=== PATIENT | male | born 1945 | race Caucasian/White ===

== ENCOUNTER 2018-09-03 07:10 | Day surgery (SDC) | payer OTHER ==
--- NOTE | 2018-09-02 16:02 | RAD REPORT ---
EXAM DESCRIPTION: RAD - Chest Pa And Lat (2 Views) - 09/02/2018 3:41 pm CLINICAL HISTORY: Preop chest, pending soft tissue lesion removal COMPARISON: December 2016 TECHNIQUE: PA and lateral views of the chest were obtained. FINDINGS: The lungs are clear of infiltrate, mass or failure finding. Lung markings are similar to c omparison. Hilar regions are stable from comparison as well. The focal density seen superimposed on the upper thoracic spine lateral view in 2017 is diminished in prominence. This represents spurring o f the spine. Heart size is normal and central vasculature is within normal limits. No pleural effusi on or pneumothorax seen. No acute bony finding noted. No aortic abnormality. IMPRESSION: No acute cardiopulmonary process.
[2018-09-02 16:07] LABS: Potassium 3.7 mmol/L (3.5-5.1)
[2018-09-02 16:16] LABS: Absolute Lymphocytes (CBC) 1.7 K/uL (0.7-4.9); Absolute Monocytes 0.5 K/uL (0.1-1.3); Absolute Neutrophil 1.7 K/uL (1.8-8.0); Basophils % 0.7 % (0-1.3); Hematocrit 43.7 % (39.6-49.0); Lymphocytes % 41.5 % (15.3-44.8); MPV 8.7 fL (7.6-11.3); Monocytes % 11.7 % (3.3-12.3); RBC Red Blood Cell Count 4.61 M/uL (4.33-5.43)
--- NOTE | 2018-09-03 06:17 | EKG ---
Test Date: 2018-09-02 Test Time: 15:32:05 [facility]: BECKI MEASUREMENT RESULTS: Intervals: Rate: 47 NH: 214 QRSD: 104 QT: 458 QTc: 405 [place]: P: 34 NH: 214 QRS: -23 T: 46 INTERPRETIVE STATEMENTS: Marked sinus bradycardia with 1st degree AV block Abnormal ECG Compared to ECG 01/07/2017 12:17:57 First degree AV block now present Left-axis deviation no longer present Electronically Signed On 09-03-18 06:17:01 CDT by Sushant Nolen
[2018-09-03] MEDS ORDERED: Ringers Lactate 1,000 ML IV ONE ×2 (07:44→10:43)
[2018-09-03] MEDS ORDERED: MIDAZOLAM HCL 2 MG/2 ML INJ ONE (08:13)
[2018-09-03] MEDS ORDERED: PROPOFOL 200 MG/20 ML VIAL IV ONE (08:13)
[2018-09-03] MEDS ORDERED: FENTANYL CITR 100 MCG/2 ML ONE ×2 (08:13→10:30)
[2018-09-03] MEDS ORDERED: LIDOCAINE 2% MPF 5 ML VIAL ONE (08:13)
[2018-09-03] MEDS ORDERED: CIPROFLOXACIN 400mg IV 400 MG/200 ML BAG IV ONE (08:17)
[2018-09-03] MEDS ORDERED: GLYCOPYRROLATE 0.2 MG/ML SYR ONE (09:17)
[2018-09-03] MEDS ORDERED: EPHEDRINE SULF 50 MG/ML VIAL ONE (09:54)
[2018-09-03] MEDS ORDERED: KETOROLAC 30 MG/ML INJ ONE (11:29)
--- NOTE | 2018-09-03 11:52 | P.BOP ---
Preoperative diagnosis: left temporal and left facial/maxillary ulcerated masses. Postoperative diagnosis: Basal cell carcioma left temporal , ulcerated maxillary mass cant r/o sq ce Primary procedure: 1. Wide excision of Basal cell carcioma left temporal 6x3cm Secondary procedure: 2. Wide excision of ulcerated maxillary mass 2x2cm Findings: after submitting extra margins, they were free of tumor by DR Mathew. Anesthesia: General Complications: None Transferred to: Recovery Room Condition: Good
--- NOTE | 2018-09-09 07:55 | OP ---
Date of Procedure: 09/03/2018 Surgeon: Rober Lobato MD Preoperative Diagnoses: Left temporal and left facial ulcerative masses. 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 2.Ulcerated maxillary/facial mass, cannot rule out squamous cell carcinoma in situ. Procedures: 1.wide resection of basal carcinoma of left temporal region with frozen section 6 x 3 cm. 2.Wide excision of ulcerated axillary facial mass 2 x 2 cm. Findings: Margins free of tumor by Dr. Mathew. Extra margins were submitted to Dr. Mathew during frozen sec tion. Anesthesia: General plus local. Indications: This is the case of a male who comes to us with 2 lesions, one temporal and one facial with ulcerations with benefits, alternatives, and risks including but not limit ed to infection, bleeding, damage to adjacent structures, anesthesia complication, recurrence, NE, an d even . He also understands this might not relieve any symptoms and he might need more than on e surgical intervention. The area of concern was marked by me and the patient in the holding room. Description Of Procedure: The patient was brought to the operating room, placed in supine position. Anesthesia was done without complication. A time-out was called. Left temporal and left maxillary area were prepped and draped in usual sterile fashion. The procedures were kept apart with instrumen ts apart to avoid cross contamination. We started with the temporal region. A wide excision was mad e away from the area of the 1.5 cm. It is in the area of the temporal region but we were able to remove enough, sent out as a specimen, and then Dr. Mathew told me that some of the margins were positive, so we circumferential excision once again all the way down to a muscle. Underst anding that it is going to be a difficult closure and in this case he may need a skin graft, we want to make sure the margins are negative. Margins came back as negative, although he has basal cell car cinoma. So, we proceeded to close this in layers. Obviously, there is a gap. It is a big gap area. We are trying to bring it together. The patient asked . If we see that next few days th ere is too much tension over the area, we may have to remove the stitches and just put a skin graft. Obviously, cosmetically, it may have some compromise. So, we proceeded to close that after obtainin g hemostasis. The patient tolerated the procedure well. We had also the lesion on the facial region . We proceeded to do a wide excision of that area, sent for orientation. Pathology comes back as ma y be carcinoma in situ; Dr. Mathew is not completely sure. The margins are free of tumor, so he is going to wait for permanent section. That area was once again approximated. The patient tolerated proced ure well. Both areas were covered with sterile dressings. The patient was sent to recovery in [facility] condition. Disposition: Home. Keep the area dry for 48 hours, then may shower. Avoid direct sunlight. Medications: See orders. KANG/LUCA Voice ID: [id number] Report ID: [id number]
== END 2018-09-03 12:37 | disposition home or self-care (01) ==
LOC: OR 07:10
PROVIDERS: ATTEND Surgery
PROC: 0JB10ZX Excision of Face Subcutaneous Tissue and Fascia, Open Approach, Diagnostic (ICD-10-PCS; 2018-09-03)
PROC: 0JB10ZZ Excision of Face Subcutaneous Tissue and Fascia, Open Approach (ICD-10-PCS; principal; 2018-09-03 10:15)
DX: C44.319 Basal cell carcinoma of skin of other parts of face (principal); C76.0 Malignant neoplasm of head, face and neck; I10 Essential (primary) hypertension; Z79.899 Other long term (current) drug therapy
CPT/HCPCS: 11646; 12054; 11644; 93005; 85025; 80048; 36415; 88331; 88332; 88305; 71046; J2704; J2250; J3010 ×2; J0744

== ENCOUNTER 2020-06-22 08:59 | Emergency (ER) | payer OTHER ==
--- NOTE | 2020-06-22 09:35 | ER ---
Nurse's Notes [facility] Name: Monica Nova Age: 75 yrs Sex: Male : 1945 Arrival Date: 06/22/2020 Time: 09:01 Bed 4 Private MD: Diagnosis: ST elevation (STEMI) myocardial infarction of other sites;Angina pectoris;Hypokalemia;Hypomagnesemia Presentation: 06/22 09:18 Chief complaint: Patient states: chest pain that radiates to L arm that began 2 hours ss ago. Coronavirus screen: Client denies travel out of the [place] in the last 14 days. Ebola Screen: Patient denies exposure to infectious person. Patient denies travel to an Ebola-affected area in the 21 days before illness onset. Initial Sepsis Screen: Does the patient meet any 2 criteria? No. Patient's initial sepsis screen is negative. Does the patient have a suspected source of infection? No. Patient's initial sepsis screen is negative. Risk Assessment: Do you want to hurt yourself or someone else? Patient reports no desire to harm self or others. Onset of symptoms was June 22, 2020. 09:18 Method Of Arrival: Ambulatory ss 09:18 Acuity: SIENNA 2 ss Triage Assessment: 09:18 General: Appears in no apparent distress. uncomfortable, well groomed, well developed, sv Behavior is calm, cooperative, appropriate for age. Pain: Complains of pain in anterior aspect of left upper chest and left breast Pain radiates to left arm Pain currently is 5 out of 10 on a pain scale. Quality of pain is described as sharp, Pain began 0600 Is continuous, Noted to be grimacing. Neuro: Level of Consciousness is awake, alert, obeys commands, Oriented to person, place, time, situation, Moves all extremities. Full function Speech is normal. Cardiovascular: Patient's skin is warm and dry. Rhythm is atrial fibrillation. Respiratory: Airway is patent Respiratory effort is even, unlabored, Respiratory pattern is regular, symmetrical. Derm: Skin is intact, Skin is normal. Musculoskeletal: Range of motion: intact in all extremities. 09:18 GI: Reports nausea. sv Historical: - Allergies: 09:20 PENICILLINS; ss - PMHx: 09:20 Hypertension; High Cholesterol; ss - Immunization history:: Adult Immunizations up to date. - Social history:: Smoking status: Patient denies any tobacco usage or history of. - Family history:: not pertinent. Screenin:35 Abuse screen: Denies threats or abuse. Denies injuries from another. Nutritional sv screening: No deficits noted. Tuberculosis screening: No symptoms or risk factors identified. Fall Risk None identified. Assessment: 10:03 General: Appears in no apparent distress. uncomfortable, well groomed, well developed, sv Behavior is calm, cooperative, appropriate for age. Pain: Complains of pain in anterior aspect of right upper chest and right breast Pain radiates to left arm Pain currently is 5 out of 10 on a pain scale. Pain began 0600. Neuro: Level of Consciousness is awake, alert, obeys commands, Oriented to person, place, time, situation, Moves all extremities. Full function. Respiratory: Airway is patent Respiratory effort is even, unlabored, Respiratory pattern is regular, symmetrical. Derm: Skin is pink, warm \\T\\ dry. 10:03 GI: Reports nausea. sv 10:11 Reassessment: Report given to Thy RN at [facility]. sv 10:20 Reassessment: Patient appears in no apparent distress at this time. Patient and/or sv family updated on plan of care and expected duration. Pain level reassessed. Patient is alert, oriented x 3, equal unlabored respirations, skin warm/dry/pink. Vital Signs: 09:18 BP 156 / 73; Pulse 70; Resp 19; Pulse Ox 97% on R/A; Weight 95.25 kg; Height 5 ft. 8 ss in. (172.72 cm); Pain 5/10; 09:26 Weight 96.9 kg (M); sv 09:39 BP 117 / 58; Pulse 65; Resp 21; Pulse Ox 100% ; sv 09:45 BP 88 / 64; Pulse 64; Resp 21; Pulse Ox 100% ; sv 10:15 BP 111 / 66; Pulse 60; Resp 16; Pulse Ox 99% on 2 lpm NC; sv 09:26 Body Mass Index 32.48 (96.90 kg, 172.72 cm) sv ED Course: 09:01 Patient arrived in ED. ds1 09:13 Jessica Byrne, RN is Primary Nurse. sv 09:20 Triage completed. ss 09:20 Arm band placed on right wrist. ss 09:20 discharging machine operator on. Pulse ox on. NIBP on. sv 09:20 Inserted saline lock: 20 gauge in left antecubital area, using aseptic technique. Blood sv collected. Flushed left antecubital with 5 ml normal saline. 09:23 Vimal Matias MD is Attending Physician. [facility] 09:29 EKG done, by ED staff, reviewed by Vimal Matias MD. Inserted saline lock: 20 gauge in jb1 right antecubital area, using aseptic technique. 09:30 Oxygen administration via nasal cannula \\T\\ 2L/min. sv 09:34 XRAY Chest (1 view) In Process Unspecified. EDMS 09:35 Patient has correct armband on for positive identification. Placed in gown. Bed in low sv position. Call light in reach. Side rails up X2. 09:[address] matias to [facility], pt accepted in transfer by Dr jacky uQiroz, admin approval given by ASPEN Ryder. 10:23 COVID-19 : Document "Date of Symptom Onset" if Symptomatic. Sent. sv 10:25 No provider procedures requiring assistance completed. Patient transferred, IV remains sv in place. intact. Administered Medications: 09:36 Drug: morphine 2 mg Route: IVP; Site: left antecubital; hb 10:27 Follow up: Response: No adverse reaction; RASS: Alert and Calm (0) sv 09:36 Drug: Zofran (Ondansetron) 4 mg Route: IVP; Site: left antecubital; hb 10:27 Follow up: Response: No adverse reaction sv 09:36 Drug: Pepcid (famotidine) 20 mg Route: IVP; Site: left antecubital; hb 10:26 Follow up: Response: No adverse reaction sv 09:40 Drug: Heparin (DC-Bolus with thrombolytic) - HEParin 60 units/kg {Co-Signature: hb sv (Emily Pascual RN).} Route: IVP; Site: right antecubital; 10:27 Follow up: Response: No adverse reaction sv 09:40 Drug: Heparin (DC Drip) 12 units/kg/hr - (HEParin 63490 units, D5W 500 ml) sv {Co-Signature: hb (Emily Pascual RN).} Route: IV; Rate: calculated rate; Site: right antecubital; 10:28 Follow up: IV Status: Infusion continued upon transfer sv 09:41 Drug: Tenecteplase 50 mg {Co-Signature: dominick (Emily Pascual RN).} Route: IV; Rate: per sv protocol; Site: left antecubital; 09:41 Follow up: Response: No adverse reaction; IV Status: Completed infusion sv 09:53 Drug: NS 0.9% 1000 ml Route: IV; Rate: 1 bolus; Site: left antecubital; sv 10:28 Follow up: Response: No adverse reaction; IV Status: Infusion continued upon transfer sv 09:55 Drug: Zofran (Ondansetron) 4 mg Route: IVP; Site: left antecubital; sv 10:26 Follow up: Response: No adverse reaction sv 10:03 Drug: Aspirin Chewable Tablet 324 mg Route: PO; sv 10:27 Follow up: Response: No adverse reaction sv 10:03 Drug: PlaVIX (clopidogrel) 300 mg Route: PO; sv 10:26 Follow up: Response: No adverse reaction sv 10:26 Drug: NS 0.9% with KCl 20 mEq/L 1000 ml Route: IV; Rate: 125 ml/hr; Site: left sv antecubital; 10:28 Follow up: IV Status: Infusion continued upon transfer sv 10:26 Drug: Magnesium Sulfate 1 grams Route: IVPB; Infused Over: 1 hrs; Site: left sv antecubital; 10:28 Follow up: IV Status: Infusion continued upon transfer sv Outcome: 09:34 ER care complete, transfer ordered by . beth 10:20 Transferred by helicopter to [facility], Transfer form completed. sv X-rays sent w/ patient. Note: Report given to Gilbert HOBBS from [facility] 10:20 Condition: stable 10:20 Instructed on the need for transfer. 10:31 Patient left the ED. sv Signatures: Dispatcher [employer] EDGilbert Baker jb1 Clare Stewart Stephanie, RN RN sv Anderson, Corey, MD MD cha Sanford, Demi ds1 Adrianne Gonzalez RN RN ss Baxter, Heather, RN RN hb Emily tan
--- NOTE | 2020-06-22 09:35 | EDPHYS ---
Physician Documentation [facility] Name: Monica Nova Age: 75 yrs Sex: Male : 1945 Arrival Date: 06/22/2020 Time: 09:01 Bed 4 Private MD: ED Physician Vimal Matias HPI: 06/22 09:29 This 75 yrs old Male presents to ER via Ambulatory with complaints of Chest beth Pain. 09:29 The patient or guardian reports chest pain that is located primarily in the substernal beth area, anterior chest wall. Onset: this morning. The pain radiates to left arm. Associated signs and symptoms: The patient has no apparent associated signs or symptoms. The chest pain is described as a heaviness, causing indigestion. Severity of pain: At its worst the pain was severe in the emergency department the pain has improved moderately. The patient has not experienced similar symptoms in the past. Historical: - Allergies: 09:20 PENICILLINS; ss - PMHx: 09:20 Hypertension; High Cholesterol; ss - Immunization history:: Adult Immunizations up to date. - Social history:: Smoking status: Patient denies any tobacco usage or history of. - Family history:: not pertinent. ROS: 09:29 Constitutional: Negative for fever, chills, and weight loss, Eyes: Negative for injury, beth pain, redness, and discharge, ENT: Negative for injury, pain, and discharge, Neck: Negative for injury, pain, and swelling, Respiratory: Negative for shortness of breath, cough, wheezing, and pleuritic chest pain, Abdomen/GI: Negative for abdominal pain, nausea, vomiting, diarrhea, and constipation, Back: Negative for injury and pain, : Negative for injury, bleeding, discharge, and swelling, MS/Extremity: Negative for injury and deformity, Skin: Negative for injury, rash, and discoloration, Neuro: Negative for headache, weakness, numbness, tingling, and seizure, Psych: Negative for depression, anxiety, suicide ideation, homicidal ideation, and hallucinations, Allergy/Immunology: Negative for hives, rash, and allergies, Endocrine: Negative for neck swelling, polydipsia, polyuria, polyphagia, and marked weight changes, Hematologic/Lymphatic: Negative for swollen nodes, abnormal bleeding, and unusual bruising. 09:29 Cardiovascular: Positive for chest pain, of the chest. Exam: 09:29 Constitutional: This is a well developed, well nourished patient who is awake, alert, beth and in no acute distress. Head/Face: Normocephalic, atraumatic. Eyes: Pupils equal round and reactive to light, extra-ocular motions intact. Lids and lashes normal. Conjunctiva and sclera are non-icteric and not injected. Cornea within normal limits. Periorbital areas with no swelling, redness, or edema. ENT: Nares patent. No nasal discharge, no septal abnormalities noted. Tympanic membranes are normal and external auditory canals are clear. Oropharynx with no redness, swelling, or masses, exudates, or evidence of obstruction, uvula midline. Mucous membranes moist. Neck: Trachea midline, no thyromegaly or masses palpated, and no cervical lymphadenopathy. Supple, full range of motion without nuchal rigidity, or vertebral point tenderness. No Meningismus. Chest/axilla: Normal chest wall appearance and motion. Nontender with no deformity. No lesions are appreciated. Cardiovascular: Regular rate and rhythm with a normal S1 and S2. No gallops, murmurs, or rubs. Normal PMI, no JVD. No pulse deficits. Respiratory: Lungs have equal breath sounds bilaterally, clear to auscultation and percussion. No rales, rhonchi or wheezes noted. No increased work of breathing, no retractions or nasal flaring. Abdomen/GI: Soft, non-tender, with normal bowel sounds. No distension or tympany. No guarding or rebound. No evidence of tenderness throughout. Back: No spinal tenderness. No costovertebral tenderness. Full range of motion. Male : Normal genitalia with no discharge or lesions. Skin: Warm, dry with normal turgor. Normal color with no rashes, no lesions, and no evidence of cellulitis. MS/ Extremity: Pulses equal, no cyanosis. Neurovascular intact. Full, normal range of motion. Neuro: Awake and alert, GCS 15, oriented to person, place, time, and situation. Cranial nerves II-XII grossly intact. Motor strength 5/5 in all extremities. Sensory grossly intact. Cerebellar exam normal. Normal gait. Psych: Awake, alert, with orientation to person, place and time. Behavior, mood, and affect are within normal limits. Vital Signs: 09:18 BP 156 / 73; Pulse 70; Resp 19; Pulse Ox 97% on R/A; Weight 95.25 kg; Height 5 ft. 8 ss in. (172.72 cm); Pain 5/10; 09:26 Weight 96.9 kg (M); sv 09:39 BP 117 / 58; Pulse 65; Resp 21; Pulse Ox 100% ; sv 09:45 BP 88 / 64; Pulse 64; Resp 21; Pulse Ox 100% ; sv 10:15 BP 111 / 66; Pulse 60; Resp 16; Pulse Ox 99% on 2 lpm NC; sv 09:26 Body Mass Index 32.48 (96.90 kg, 172.72 cm) sv MDM: 09:23 Patient medically screened. beth 09:34 Differential diagnosis: abnormal EKG, acute myocardial infarction, hiatal hernia, beth pancreatitis, pulmonary embolus, stable angina. HEART Score: History: Highly Suspicious (2), ECG: Significant ST-deviation (2), Age: > or = 65 years (2), Risk Factors: > or = 3 Risk factors for atherosclerotic disease (2), Troponin: < or = 1 x Normal Limit (0). The patient was given aspirin in the Emergency Department. The patient's deep vein thrombosis risk score was calculated as follows: Total Score: 0. This patient was found to be at low risk for a deep vein thrombosis by using the Well's assessment criteria. The patient's pulmonary embolism risk score was calculated as follows: Total Score: 0-2 points. This patient was found to be at low risk for a pulmonary embolism by using the Well's assessment criteria. SARAH Risk Score: 1 - patient's age is greater or equal to 65 years, 1 - Three or more CAD risk factors, 1- Known CAD, 1 - ASA use in past 7 days, 1 - Recent [<24hrs] Severe Angina, 1 - ST deviation >0.5mm, TOTAL SCORE = 6. Data reviewed: vital signs, nurses notes, lab test result(s), EKG, radiologic studies, plain films. Data interpreted: panel monitor: rate is 70 beats/min, rhythm is regular, Pulse oximetry: on room air is 97 %. Test interpretation: by ED physician or midlevel provider: ECG, plain radiologic studies. Counseling: I had a detailed discussion with the patient and/or guardian regarding: the historical points, exam findings, and any diagnostic results supporting the discharge/admit diagnosis, lab results, radiology results, the need to transfer to another facility, for higher level of care, [facility] does not immediately have the required specialist, labeling strategist not functional here. 06/22 09:21 Order name: Basic Metabolic Panel; Complete Time: 10:01 ss 06/22 09:21 Order name: CBC with Diff; Complete Time: 10: 06/22 09:21 Order name: LFT's; Complete Time: 10: 06/22 09:21 Order name: Magnesium; Complete Time: 10: ss 06/22 09:21 Order name: NT PRO-BNP; Complete Time: 10: 06/22 09:21 Order name: PT-INR 06/22 09:21 Order name: Troponin (emerg Dept Use Only); Complete Time: 10: 06/22 09:21 Order name: XRAY Chest (1 view) 06/22 10:20 Order name: COVID-19 : Document "Date of Symptom Onset" if Symptomatic. bd 06/22 09:21 Order name: EKG; Complete Time: 09:22 ss 06/22 09:21 Order name: Cardiac monitoring; Complete Time: 09:25 ss 06/22 09:21 Order name: EKG - Nurse/Tech; Complete Time: 09:25 ss 06/22 09:21 Order name: IV Saline Lock; Complete Time: 09:25 ss 06/22 09:21 Order name: Labs collected and sent; Complete Time: 09:25 ss 06/22 09:21 Order name: O2 Per Protocol; Complete Time: 09:25 ss 06/22 09:21 Order name: O2 Sat Monitoring; Complete Time: 09:25 ss 06/22 09:29 Order name: NPO; Complete Time: 09:46 beth 06/22 09:50 Order name: IV Saline Lock - Large Bore; Complete Time: 10:04 beth Administered Medications: 09:36 Drug: morphine 2 mg Route: IVP; Site: left antecubital; hb 10:27 Follow up: Response: No adverse reaction; RASS: Alert and Calm (0) sv 09:36 Drug: Zofran (Ondansetron) 4 mg Route: IVP; Site: left antecubital; hb 10:27 Follow up: Response: No adverse reaction sv 09:36 Drug: Pepcid (famotidine) 20 mg Route: IVP; Site: left antecubital; hb 10:26 Follow up: Response: No adverse reaction sv 09:40 Drug: Heparin (MN-Bolus with thrombolytic) - HEParin 60 units/kg {Co-Signature: hb sv (Emily Pascual RN).} Route: IVP; Site: right antecubital; 10:27 Follow up: Response: No adverse reaction sv 09:40 Drug: Heparin (MN Drip) 12 units/kg/hr - (HEParin 58281 units, D5W 500 ml) sv {Co-Signature: hb (Emily Pascual RN).} Route: IV; Rate: calculated rate; Site: right antecubital; 10:28 Follow up: IV Status: Infusion continued upon transfer sv 09:41 Drug: Tenecteplase 50 mg {Co-Signature: hb (Emily Pascual RN).} Route: IV; Rate: per sv protocol; Site: left antecubital; 09:41 Follow up: Response: No adverse reaction; IV Status: Completed infusion sv 09:53 Drug: NS 0.9% 1000 ml Route: IV; Rate: 1 bolus; Site: left antecubital; sv 10:28 Follow up: Response: No adverse reaction; IV Status: Infusion continued upon transfer sv 09:55 Drug: Zofran (Ondansetron) 4 mg Route: IVP; Site: left antecubital; sv 10:26 Follow up: Response: No adverse reaction sv 10:03 Drug: Aspirin Chewable Tablet 324 mg Route: PO; sv 10:27 Follow up: Response: No adverse reaction sv 10:03 Drug: PlaVIX (clopidogrel) 300 mg Route: PO; sv 10:26 Follow up: Response: No adverse reaction sv 10:26 Drug: NS 0.9% with KCl 20 mEq/L 1000 ml Route: IV; Rate: 125 ml/hr; Site: left sv antecubital; 10:28 Follow up: IV Status: Infusion continued upon transfer sv 10:26 Drug: Magnesium Sulfate 1 grams Route: IVPB; Infused Over: 1 hrs; Site: left sv antecubital; 10:28 Follow up: IV Status: Infusion continued upon transfer sv Disposition: 06/22/20 09:34 Transfer ordered to [facility]. Diagnosis are ST elevation (STEMI) myocardial infarction of other sites, Angina pectoris, Hypokalemia, Hypomagnesemia. - Reason for transfer: Higher level of care. - Accepting physician is to [facility], labeling strategist. - Condition is Critical. - Problem is new. - Symptoms are unchanged. Signatures: Dispatcher [employer] Jessica Champagne RN RN Vimal Matias MD MD cha Smirch, Shelby, RN RN Emily Pascual RN RN Emily tan Corrections: (The following items were deleted from the chart) 10:03 09:34 06/22/2020 09:34 Transfer ordered to [facility]. [facility] Diagnosis is ST elevation (STEMI) myocardial infarction of other sites; Angina pectoris. Reason for transfer: Higher level of care. Accepting physician is to [facility], labeling strategist. Condition is Critical. Problem is new. Symptoms are unchanged. [facility] 10:31 10:03 06/22/2020 09:34 Transfer ordered to [facility]. sv Diagnosis is ST elevation (STEMI) myocardial infarction of other sites; Angina pectoris; Hypokalemia; Hypomagnesemia. Reason for transfer: Higher level of care. Accepting physician is to [facility], labeling strategist. Condition is Critical. Problem is new. Symptoms are unchanged. beth
[2020-06-22 09:43] LABS: Basophils % 1.2 % (0-1.3); Hematocrit 45.2 % (39.6-49.0); Lymphocytes % 45.8 % (15.3-44.8); MPV 8.9 fL (7.6-11.3); RBC Red Blood Cell Count 4.68 M/uL (4.33-5.43)
[2020-06-22] MEDS ORDERED: TENECTEPLASE 50 MG/10 ML VIAL IV ONE (09:44)
[2020-06-22] MEDS ORDERED: MORPHINE 2 MG/ML SYR ONE (09:49)
[2020-06-22] MEDS ORDERED: ASPIRIN 81 MG CHEWABLE TABLET ONE (09:49)
[2020-06-22] MEDS ORDERED: ONDANSETRON 4 MG/2 ML VIAL ONE ×2 (09:49→10:04)
[2020-06-22] MEDS ORDERED: HEPARIN 5000 UNIT/ML 1 ML VIAL ONE (09:49)
[2020-06-22] MEDS ORDERED: CLOPIDOGREL 75 MG TABLET ONE (09:50)
[2020-06-22] MEDS ORDERED: FAMOTIDINE 20 MG/2 ML VIAL IV ONE (09:50)
[2020-06-22] MEDS ORDERED: HEPARIN/D5W 25,000 UNIT/500 ML BAG IV ONE (09:50)
[2020-06-22 09:51] LABS: Protime INR 0.89
[2020-06-22 10:01] LABS: ALT/SGPT 57 U/L (12-78); AST/SGOT 74 U/L (15-37); Albumin 3.9 g/dL (3.4-5.0); Alkaline Phosphatase 93 U/L (45-117); BUN Blood Urea Nitrogen 10 mg/dL (7-18); Bicarbonate 27 mmol/L (21-32); Bilirubin Direct 0.3 mg/dL (0-0.2); Glucose Level 100 mg/dL (74-106); Magnesium 1.6 mg/dL (1.8-2.4); NT PRO-BNP 1058 pg/mL (<125); Potassium 3.3 mmol/L (3.5-5.1); Protein, Total 7.5 g/dL (6.4-8.2); Sodium Level 144 mmol/L (136-145); Troponin (Emerg Dept Use Only) 0.02 ng/mL (0.0-0.045)
--- NOTE | 2020-06-22 10:03 | RAD REPORT ---
EXAM DESCRIPTION: RAD - Chest Single View - 06/22/2020 9:34 am CLINICAL HISTORY: CHEST PAIN Chest pain. COMPARISON: Chest Pa And Lat (2 Views) dated 09/02/2018; Chest Pa And Lat (2 Views) dated 01/07/2017; CHEST PA AND LAT 2 VIEW dated 02/17/2008 FINDINGS: Portable technique limits examination quality. Minimal interstitial pulmonary edema suspected. The heart is upper limit normal size. No displaced fr actures. IMPRESSION: Mild CHF.
[2020-06-22] MEDS ORDERED: NA CHLORIDE 0.9% 2,000 ML ONE (10:07)
[2020-06-22] MEDS ORDERED: MAGNESIUM SULFATE 1 gm IVPB 1 GM/100 ML BAG IV ONE (10:32)
[2020-06-22] MEDS ORDERED: NS KCL 20MEQ 1,000 ML IV ONE (10:32)
[2020-06-22 10:39] VITALS: O2SAT 100
[2020-06-22 10:40] VITALS: BP 88/64
--- NOTE | 2020-06-23 06:54 | EKG ---
Test Date: 2020-06-22 Test Time: 09:18:13 [employer]irler: ILENE MEASUREMENT RESULTS: Intervals: Rate: 62 IN: QRSD: 102 QT: 442 QTc: 448 [place]: P: IN: QRS: -29 T: 53 INTERPRETIVE STATEMENTS: Atrial fibrillation Abnormal ECG Compared to ECG 09/02/2018 15:32:05 ST (T wave) deviation now present sinus bradycardia no longer present First degree AV block no longer present Electronically Signed On 06-23-20 06:52:49 CDT by Nilesh Soliz
== END 2020-06-22 10:31 | disposition short-term general hospital (02) ==
LOC: ER 08:59
DX: I21.29 ST elevation (STEMI) myocardial infarction involving other sites (principal); I20.9 Angina pectoris, unspecified; E87.6 Hypokalemia; E83.42 Hypomagnesemia; I10 Essential (primary) hypertension; E78.00 Pure hypercholesterolemia, unspecified; Z20.822 Contact with and (suspected) exposure to COVID-19; Z88.0 Allergy status to penicillin
CPT/HCPCS: 85025; 80048; 36415; 83735; 85610; 80076; 84484; 83880; 71045; U0003; J1644 ×2; J3101; J3475; J2270; J7030; J2405 ×2; J3480; 92977; 93005; 99285

== ENCOUNTER 2020-07-07 09:34 | Emergency (ER) | payer OTHER ==
--- OUTSIDE RECORDS SUMMARY | 2020-07-07 09:38 | XMS REPORT | Continuity of Care Document ---
:1945 Author Organization [facility] t Address [address] [place] [address] Care Team Providers Name Role Phone Xiang Connolly Primary Care Physician Unavailable Manuel HOBBS, A Attending Clinician Unavailable Everett PATEL Attending Clinician Anatoly Rhoades MD Attending Clinician EVERETT Attending Clinician Unavailable EVERETT Admitting Clinician Unavailable Payers Payer Name Policy Type Policy Effective Date Expiration Date Sour ce Number AETNA - MEDICARE [id number] [address] [facility] [address] [facility] MGD CAREAETNA 00:00:00 - Medical MEDICARE HMO Center [id number], [place] [address]Gkfs Contracted Problems Condition Condition Condition Status Onset Resolution Last Treating Co mments Source Name Details Category Date Date Treatment Clinician Date STEMI (ST STEMI (ST 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[facility] St elevation elevation 3 Lu s - myocardial myocardial 00:00: Me dical infarction infarction 00 Ce nter ) ) Allergies, Adverse Reactions, Alerts Allergy Allergy Status Severity Reaction(s) Onset Inactive Treating Comm ents Source Name Type Date Date Clinician Penicill Propensi Active Other (See Made [facility] Comments) 03-25 [facility] - adverse 00:00: pass out Medical reaction 00 Center s Social History Social Habit Start Date Stop Date Quantity Comments Source History of tobacco Current sm[facility] Sex Assigned At [facility] Exposure to Not sure [facility] - SARS-CoV-2 (event) Medica l Reyno Tobacco use and 2020-06-27 2020-06-[address] [facility] - exposure 00:00:00 00:00:00 Medical Center Alcohol intake 2020-06-27 2020-06-27 Current drinker [facility] - 00:[facility]:00 00:00:00 of alcohol Medical Center (finding) History [facility] 2020-06-22 2020-06-[address] [facility] - Alcohol Frequency 00:00:00 00:00:00 Medical Center History SDOH 2020-06-22 2020-06-[address] [facility] - Alcohol Std Drinks 00:00:00 00:00:00 [facility] History [facility] 2020-06-22 2020-06-[address] [facility] - Alcohol Binge 00:00:00 00:00:[address] Alcohol Comment 2020-06-22 2020-06-22 1.5L/week [facility] - 00:[facility]:00 00:00:00 Medical Center Smoking Status Start Date Stop Date Source Former smoker 2020-06-27 00:00:00 2020-06-27 00:00:[address] [facility] Medications Ordered Filled Start Stop Current Ordering Indication Dosage Frequency Signature Comments Components Source Medication Medication Date Date Medication? Clinician (SIG) Name Name lisinopriL 2021- Yes 10mg QD Take [address] (PRINIVIL,Z 06-25-03 tablet (10 L ukes - ESTRIL) 10 00:00: 23:59 mg total) M edical MG tablet 00 :00 by mouth Center daily. clopidogreL 2021- Yes 75mg QD Take [address] (PLAVIX) 75 - 04-03 tablet (75 L ukes - mg tablet 00:00: 23:59 mg total) Me dical 00 :00 by mouth Center daily. aspirin 81 2021- Yes 81mg QD Take [address] MG chewable 06-25 04-03 tablet (81 L ukes - tablet 00:00: 23:59 mg total) Medic al 00 :00 by mouth Center daily. rosuvastati 2020- No 10mg QD Take [address] n (CRESTOR) 06-24 by mouth Glo es - 10 MG 13:21: 00:00 daily. Medical tablet 47 :00 Center metoprolol 2020- No 200mg QD Take [address] succinate 06-2402 mg by [facility] - (TOPROL-XL) 13:21: 00:00 mouth Medi jt 200 MG 24 47 :00 daily. Center hr tablet amLODIPine- 2020- No 1{capsu QD Take [address] benazepriL 06-24 le} capsule by Kely kes - (LOTREL) 13:21: 00:00 mouth Medical 10-20 mg 47 :00 daily. Center per capsule rosuvastati 2021- Yes 10mg QD Take 0.[address] n (CRESTOR) 06-24 tablets Luke s - 20 MG 00:00: 23:59 (10 mg Medical tablet 00 :00 total) by Center mouth daily. apixaban 2021- Yes 5mg Q.5D Take [address] (ELIQUIS) 5 06-24 tablet (5 Kely kes - mg Tab 00:00: 23:59 mg total) Medic al tablet 00 :00 by mouth 2 Center (two) times daily. metoprolol 2021- Yes 25mg Q.5D Take [address] tartrate 06-24 tablet (25 Luke s - (LOPRESSOR) 00:00: 23:59 mg total) Medical 25 MG 00 :00 by mouth 2 Center tablet (two) times daily. Vital Signs Vital Name Observation Time Observation Value Comments Source Systolic blood 2020-06-24 11:00:00 114 mm[Hg] [facility] Diastolic blood 2020-06-24 11:00:00 74 mm[Hg] [facility] S t [facility] Heart rate 2020-06-24 11:00:00 89 /min [facility] Body temperature 2020-06-24 11:00:00 37.67 Lucy [facility] Respiratory rate 2020-06-24 11:00:00 19 /min [facility] Body weight 2020-06-24 11:00:00 92.987 kg [facility] BMI 2020-06-24 11:00:00 31.17 kg/m2 [facility] Oxygen saturation in 2020-06-24 11:00:00 96 /min [facility] - Arterial blood by Medical Ce ntlindsey Pulse oximetry Body height 2020-06-22 11:26:00 172.7 cm [facility] Procedures Procedure Date / Time Performed Performing Clinician Sour e CBC W/PLT COUNT & AUTO 2020-06-24 06:02:[address] [facility] - DIFFERENTIAL [facility] BASIC METABOLIC PANEL 2020-06-24 06:02:[address] [facility] (7) [facility] MAGNESIUM 2020-06-24 06:02:[address] [facility] 2D ECHO W/ DOPPLER 2020-06-23 18:31:31 Gatito Martinez [facility] (CW/PW/COLOR) [facility] APTT 2020-06-23 06:01:00 [facility] ECG 12-LEAD 2020-06-23 05:13:43 [facility] CBC W/PLT COUNT & AUTO 2020-06-23 03:08:[address] [facility] DIFFERENTIAL [facility] BASIC METABOLIC PANEL 2020-06-23 03:08:00 Eugenie Almeida [facility] - (7) [facility] MAGNESIUM 2020-06-23 03:08:[address] [facility] APTT 2020-06-23 00:31:00 [facility] TROPONIN I 2020-06-22 23:07:00 Gatito Martinez [facility] TROPONIN I 2020-06-22 17:29:00 Gatito Martinez [facility] POCT-ACT 2020-06-22 16:29:00 Dony Live [facility] POCT-ACT 2020-06-22 16:16:00 Bayronradha [facility] Sheldonaamir [facility] POCT-ACT 2020-06-22 15:40:00 Bayronradha [facility] L CATH & PCI 2020-06-22 14:48:00 Bayronradha [facility] ECG 12-LEAD 2020-06-22 13:09:47 Unknown, Hl7 Doctor [facility] XR CHEST 1 VIEW 2020-06-22 12:34:00 Gatito Martinez [facility]IDE [facility] CBC W/PLT COUNT & AUTO 2020-06-22 12:07:00 Gatito Martinze [facility] HEMOGLOBIN A1C 2020-06-22 12:07:00 Gatito Martinez [facility] LIPID PANEL 2020-06-22 12:07:00 Juan [facility] BASIC METABOLIC PANEL 2020-06-22 12:07:00 Gatito Martinez [facility] - (7) [facility] HEPATIC FUNCTION PANEL 2020-06-22 12:07:00 Gatito Martinez [facility] MAGNESIUM 2020-06-22 12:07:00 Gatito Martinez [facility] PHOSPHORUS 2020-06-22 12:07:00 Gatito Martinez [facility] TSH/FREE T4 IF INDICATED 2020-06-22 12:07:00 Gatito Martinez [facility] TROPONIN I 2020-06-22 12:07:00 Gatito Martinez [facility] B-TYPE NATRIURETIC 2020-06-22 12:07:00 Gatito Martinez [facility] (BNP) [facility] PROTHROMBIN TIME/INR 2020-06-22 12:07:00 Gtaito Martinez [facility] APTT 2020-06-22 12:07:00 Juan [facility] ECG 12-LEAD 2020-06-22 11:20:42 Unknown, Hl7 Doctor [facility] Theodora erickson [facility] L CATH & PCI 2020-06-22 11:00:00 Dony Live [facility] CARDIAC CATH REPORT - 2020-06-22 00:00:00 Provider, Default [facility] - SCAN Scanning [facility] REPORT OF PROCEDURE - 2020-06-22 00:00:00 Provider, Default [facility] - ENDOSCOPY SCAN Scanning [facility] VASCULAR DIAGRAM -SCAN 2020-06-22 00:00:00 Provider, Default [facility] - [facility] Plan of Care Planned Activity Planned Date Details Comments Source Future Scheduled 2020-11-[address] [facility] - Test 00:00:00 (Season Ended) [code = Medic al Center INFLUENZA VACCINE (Season Ended)] Future Scheduled 2020-03-[address] [facility] - Test 00:00:00 (12+) [code = Medical Center DEPRESSION SCREENING (12+)] Future Scheduled 2020-03-25 Medicare IPPE (WELCOME [facility] - Test 00:00:00 TO MEDICARE) [code = Medical Center Medicare IPPE (WELCOME TO MEDICARE)] Future Scheduled 2011 PNEUMOCOCCAL 65+ [facility]RS [facility] - Test 00:00:00 (1 of 1 - Medical Center [id number]) [code = PNEUMOCOCCAL 65+ YRS (1 of 1 - [id number] PCV13)] Future Scheduled 1996 SHINGLES VACCINES ([address] [facility] - Test 00:00:00 of 2) [code = SHINGLES Medic al Center VACCINES (1 of 2)] Future Scheduled 1965 DTAP/TDAP/TD VACCINES [facility] - Test 00:00:00 (1 - Tdap) [code = Medical C enter DTAP/TDAP/TD VACCINES (1 - Tdap)] Future Scheduled 1964 HEPATITIS C SCREENING [facility] - Test 00:00:00 [code = HEPATITIS C Medical Center SCREENING] Future Scheduled [address] [facility] - Test 00:00:00 [facility] colon (procedure) [code = 932027895] Results Test Description Test Time Test Comments Results Result Sourc e Comments CARDIAC CATH Ordered by an [facility] REPORT - SCAN 5 unspecified [facility]. [facility] Center CARDIAC CATH Ordered by an [facility] REPORT - SCAN 5 unspecified provider. [facility] Center VASCULAR DIAGRAM Ordered by an [facility] S t -SCAN 5 unspecified provider. Glo es - 10:32:30 [facility] Center Transthoracic 2D Ejection FractionSLEH [facility] echo w/ doppler 2 ECHO HEARTLAB [facility] - (cw/pw/color) 09:39:10 [facility] CPACSInterface, Center External Ris In - 06/24/2020 9:39 AM CDTTransthoracic Echocardiography Report (TTE) Demographics Patient Name JASPREET LIAO Date of Study 06/23/2020 BARRY Gender Male Visit Number [id number] Race Room Number 1010 Number Date of 1945 Referring Gatito Martinez Physician Age 75 year(s) [employer]er[employer] [place] Interpreting Luis Eduardo Britton MD Physician BSC Needs to be Pre Read Procedure Type of Study TTE procedure:2DECHO W DOPPLER(CW/PW/COLOR) (GELACIO) Indications:Acute Chest Pain/ Suspected CAD.Clinical HistoryCA, HTN, HLD, EtOH ABUSE, STEMI06/22/20 PCI- RAMUSHGB 12.2HCT 35.1 %Contrast Medium: Definity. Amount - 2 mlHeight: 68 inches Weight: 95.25 kg (210 lbs) BSA: 2.09 m^2 BMI: 31.93 kg/m^2HR: 72 bpm BP: 127/81 mmHg Summary 1. Technically difficult study despite IV contrast. LV endocardium is partially visualized with IV ultrasound enhancing agent. The left ventricle is chamber size (by vol index) is normal (male - LVED vol - 34-74ml/m2). Borderline concentric LV hypertrophy. Mid to distal anterolateral wall appears hypokinetic. Other ingram contract normally. LVEF by Robertson's method of disk assessment is lower limits of normal (50-55%) . LV diastolic function is indeterminate. LA size is moderately enlarged (42-48 ml/m2) . 2. The right ventricular chamber size and systolic function are within normal limits. 3. No significant valvular abnormalities 4. Unable to estimate peak systolic PA pressure; inadequate TR velocity signal. 5. Aortic root size (SInus of Valsalva diameter) is borderline dilated, 4.0 cm. Normal indexed to BSA . Proximal ascending aorta size is mildly dilated, 3.9 cm. Previous Study No prior exam available for comparison. Signature - - Findings Left Ventricle Technically difficult study despite IV contrast. LV endocardium is partially visualized with IV ultrasound enhancing agent. The left ventricle is chamber size (by vol index) is normal (male - LVED vol - 34-74ml/m2). Borderline concentric LV hypertrophy. Mid to distal anterolateral wall appears hypokinetic. Other ingram contract normally. LVEF by Robertson's method of disk assessment is lower limits of normal (50-55%) . LV diastolic function is indeterminate. Left Atrium LA size is moderately enlarged (42-48 ml/m2) . Right Ventricle The right ventricular chamber size and systolic function are within normal limits. Right Atrium RA size is probably normal based on available views. Aortic Valve Mild aortic valve thickening and calcification. No aortic stenosis. Trace aortic regurgitation. Mitral Valve Mild MV leaflet thickening. Mild mitral regurgitation. Tricuspid Valve Normal TV structure and function by available views and Doppler. A trace of tricuspid regurgitation. Unable to estimate peak systolic PA pressure; inadequate TR velocity signal. Pulmonic Valve Normal PV structure and function by limited views and Doppler. Aorta Aortic root size (SInus of Valsalva diameter) is borderline dilated, 4.0 cm. Normal indexed to BSA . Proximal ascending aorta size is mildly dilated, 3.9 cm. Pericardium No pericardial effusion is visualized. IVC/SVC/PA/PV/Pleural The inferior vena cava is not well visualized. Chambers/Structures Left Atrium LA Volume: 92.13 ml LA Area: 24.41 cm^2 LA Vol. Index: 44 ml/m^2 Left Ventricle LVIDd: 4.32 cm LVIDs: 3.12 cm LV Septum Diastolic: 1.09 cm LV PW Diastolic: 1.16 cm LV FS: 27.8 % LVEDV Robertson's:155.16 ml LVESV Robertson's:79.67 ml LVEDVI: 74 ml/m^2 LVEF Robertson's: 50.2 % LVESVI: 38 ml/m^2 LVOT Diameter: 2.22 cm Right Ventricle RVOT VTI: 14.87 cm Aorta Ao Root S of Rand.: 3.97 cm Ascending Aorta: 3.89 cm Doppler/Quantitative Measurements Mitral Valve MV Peak E-Wave: 0.97 m/s MV Peak A-Wave: 0.41 m/s E/A Ratio: 2.36 Peak Gradient: 3.76 mmHg Deceleration Time: 182.9 msec MR Velocity: 4.84 m/s MR VTI: 148.85 cm MV Jefry. Peak: Aortic Valve Peak Velocity: 1.3 m/s Mean Velocity: 0.88 m/s Peak Gradient: 6.76 mmHg Mean Gradient: 3.57 mmHg AV Area (continuity): 3.76 cm^2 AV VTI: 22.89 cm AR P1/2t: 710.8 msec AV DVI: 0.97 LVOT Peak Velocity: 1.07 m/s Peak Gradient: 4.59 mmHg Mean Velocity: 0.78 m/s Mean Gradient: 2.71 mmHg LVOT Diameter: 2.22 cm LVOT VTI: 22.25 cm LVOT Area: 3.87 cm^2 LVOT SV:86.08 ml LVOT CO: 6.2 l/min LVOT CI: 2.97 l/min/m^2 Basic Metabolic Panel 2020-06-24 06:57:00 Test Item Value Reference Range Interpretation Comme nts Sodium (test code = 141 meq/L 086-680 8870-2) Potassium (test code = 3.3 meq/L 3.5-5.1 L 2823-3) Chloride (test code = 103 meq/L 98-107 2074-0) CO2 (test code = 2027-9) 30 meq/L 22-29 H BUN (test code = 3094-0) 7 mg/dL 7-21 Creatinine (test code = 0.69 mg/dL 0.57-1.25 2160-0) Glucose (test code = 104 mg/dL 70-105 2345-7) Calcium (test code = 8.1 mg/dL 8.4-10.2 L 26928-8) EGFR (test code = 82860-3) 112 mL/min/1.73 sq m ESTIMATED GFR IS NOT ACCURATE CREATININE JESÚS MADISON IN PREDICTING GLOMERULAR FILT RATION RATE. ESTIMATED GFR IS NOT APPLICAB LE FOR DIALYSIS PATIEN TS. ABHISHEK (test code = ABHISHEK) Sensor Specialist ID - EDASI Lab Interpretation (test Abnormal code = 94988-4) [facility] 06[facility]57:00 Test Item Value Reference Range Interpretation Comments Magnesium (test code = 1.6 mg/dL 1.6-2.6 91611-6) ABHISHEK (test code = ABHISHEK) Sensor Specialist ID - EDASI Lab Interpretation (test Normal code = 01920-3) [facility]OLIC [id number] 06:57:00 Test Item Value Reference Range Interpretation Comments SODIUM (BEAKER) 141 meq/L 136-145 (test code = 381) POTASSIUM (BEAKER) 3.3 meq/L 3.5-5.1 L (test code = 379) CHLORIDE (BEAKER) 103 meq/L 98-107 (test code = 382) CO2 (BEAKER) (test 30 meq/L 22-29 H code = 355) BLOOD UREA NITROGEN 7 mg/dL 7-21 (BEAKER) (test code = 354) CREATININE (BEAKER) 0.69 mg/dL 0.57-1.25 (test code = 358) GLUCOSE RANDOM 104 mg/dL 70-105 (BEAKER) (test code = 652) CALCIUM (BEAKER) 8.1 mg/dL 8.4-10.2 L (test code = 697) EGFR (BEAKER) (test 112 mL/min/1.73 ESTIM ATED GFR IS code = 1092) sq m NOT ACCURATE CREATININE CLEARANCE IN PREDICTING GLOMERULAR FILTRATION RATE . ESTIMATED GFR I S NOT APPLICABLE FOR DIALYSIS PATIEN TS. Sensor Specialist ID - [id number] 06:57:00 Test Item Value Reference Range Interpretation Comments MAGNESIUM (BEAKER) (test code = 1.6 mg/dL 1.6-2.6 627) Sensor Specialist ID - EDASICBC with platelet count + automated [id number] 06:26:00 Test Item Value Reference Range Interpretation Comments WBC (test code = 6690-2) 4.9 See_Comment [A utomated message] The system [employer] generated this result transmitted ref erence range: 3.5 - 10 .5 K/L. The refe rence range was not u sed to interpret this result as normal/abnor mal. RBC (test code = 789-8) 3.89 See_Comment L [Au tomated message] The system [employer] generated this result transmitted ref erence range: 4.63 - 6 .08 M/L. The refe rence range was not u sed to interpret this result as normal/abnor mal. MCHC (test code = 786-4) 34.6 See_Comment L [A utomated message] The system [employer] generated this result transmitted ref erence range: 32.3 - 3 6.5 GM/DL. The refe rence range was not u sed to interpret this result as normal/abnor mal. Hematocrit (test code = 37.6 % 40.1-51 L 4544-3) MCV (test code = 787-2) 96.7 fL 79-92.2 H MCH (test code = 785-6) 33.4 pg 25.7-32.2 H RDW (test code = 788-0) 12.4 % 11.6-14.4 Platelets (test code = 96 See_Comment L [Aut omated message] 777-3) The system [employer] generated this result transmitted ref erence range: 150 - 45 0 K/CU MM. The referen ce range was not u sed to interpret this result as normal/abnor mal. MPV (test code = 10.0 fL 9.4-12.4 67756-2) nRBC (test code = 413) 0 See_Comment [Aut omated message] The system [employer] generated this result transmitted ref erence range: 0 - 0 /1 00 WBC. The refere nce range was not u sed to interpret this result as normal/abnor mal. % Neutros (test code = 66 % 429) % Lymphs (test code = 24 % 430) % Monos (test code = 9 % 431) % Eos (test code = 432) 0 % % Baso (test code = 437) 0 % # Neutros (test code = 3.23 See_Comment [Aut omated message] 670) The system [employer] generated this result transmitted ref erence range: 1.78 - 5 .38 K/L. The refe rence range was not u sed to interpret this result as normal/abnor mal. # Lymphs (test code = 1.18 See_Comment L [Auto mated message] 414) The system [employer] generated this result transmitted ref erence range: 1.32 - 3 .57 K/L. The refe rence range was not u sed to interpret this result as normal/abnor mal. # Monos (test code = 0.46 See_Comment [Autom ated message] 415) The system [employer] generated this result transmitted ref erence range: 0.30 - 0 .82 K/L. The refe rence range was not u sed to interpret this result as normal/abnor mal. # Eos (test code = 416) 0.01 See_Comment L [Au tomated message] The system [employer] generated this result transmitted ref erence range: 0.04 - 0 .54 K/L. The refe rence range was not u sed to interpret this result as normal/abnor mal. # Baso (test code = 417) 0.01 See_Comment [A utomated message] The system [employer] generated this result transmitted ref erence range: 0.01 - 0 .08 K/L. The refe rence range was not u sed to interpret this result as normal/abnor mal. Immature 0 % 0-1 Granulocytes-Relative (test code = 2801) Lab Interpretation (test Abnormal code = 88305-7) [facility] W/PLT COUNT & AUTO [id number] 06:26:00 Test Item Value Reference Range Interpretation Comments WHITE BLOOD CELL COUNT (BEAKER) 4.9 K/ L 3.5-10.5 (test code = 775) RED BLOOD CELL COUNT (BEAKER) 3.89 M/ L 4.63-6.08 L (test code = 761) HEMOGLOBIN (BEAKER) (test code = 13.0 GM/DL 13.7-17.5 L 410) HEMATOCRIT (BEAKER) (test code = 37.6 % 40.1-51.0 L 411) MEAN CORPUSCULAR VOLUME (BEAKER) 96.7 fL 79.0-92.2 H (test code = 753) MEAN CORPUSCULAR HEMOGLOBIN 33.4 pg 25.7-32.2 H (BEAKER) (test code = 751) MEAN CORPUSCULAR HEMOGLOBIN CONC 34.6 GM/DL 32.3-36.5 (BEAKER) (test code = 752) RED CELL DISTRIBUTION WIDTH 12.4 % 11.6-14.4 (BEAKER) (test code = 412) PLATELET COUNT (BEAKER) (test code 96 K/CU MM 150-450 L = 756) MEAN PLATELET VOLUME (BEAKER) 10.0 fL 9.4-12.4 (test code = 754) NUCLEATED RED BLOOD CELLS (BEAKER) 0 /100 WBC 0-0 (test code = 413) NEUTROPHILS RELATIVE PERCENT 66 % (BEAKER) (test code = 429) LYMPHOCYTES RELATIVE PERCENT 24 % (BEAKER) (test code = 430) MONOCYTES RELATIVE PERCENT 9 % (BEAKER) (test code = 431) EOSINOPHILS RELATIVE PERCENT 0 % (BEAKER) (test code = 432) BASOPHILS RELATIVE PERCENT 0 % (BEAKER) (test code = 437) NEUTROPHILS ABSOLUTE COUNT 3.23 K/ L 1.78-5.38 (BEAKER) (test code = 670) LYMPHOCYTES ABSOLUTE COUNT 1.18 K/ L 1.32-3.57 L (BEAKER) (test code = 414) MONOCYTES ABSOLUTE COUNT (BEAKER) 0.46 K/ L 0.30-0.82 (test code = 415) EOSINOPHILS ABSOLUTE COUNT 0.01 K/ L 0.04-0.54 L (BEAKER) (test code = 416) BASOPHILS ABSOLUTE COUNT (BEAKER) 0.01 K/ L 0.01-0.08 (test code = 417) IMMATURE GRANULOCYTES-RELATIVE 0 % 0-1 PERCENT (BEAKER) (test code = 2801) ECG 12 [id number] 08:26:49Interface, External Ris In - 06/23/2020 8:26 AM CDTVentricular Rate 58 BPMAtrial Rate 64 BPMQRS Duration 100 msQ-T Interval 462 msQTC Calculation(Bazett) 453 msR Lovell -39 degreesT Lovell 123 degreesAtrial fibrillation with slow ventricular responseLeft axis deviationPulmonary disease patternNonspecificST and T wave abnormalityProlonged QTAbnormal ECGWhen compared with ECG of 22-Jun-2020 13:09:47No significant change was foundConfirmed by Ben Godfrey ([id number]) on 06/23/2020 8:26:45 [facility] 2020[facility] 06:34[facility]00 Test Item Value Reference Range Interpretation Comments PTT (test code = 91.0 See_Comment H [Automated message] 36419-7) The system [employer] generated this result transmitted ref erence range: 22.5 - 3 6.0 seconds. The reference range was not used to int erpret this result as normal/abnormal . Lab Interpretation (test Abnormal code = 03896-7) [facility] 06:34:00 Test Item Value Reference Range Interpretation Comments PARTIAL THROMBOPLASTIN TIME 91.0 seconds 22.5-36.0 H (BEAKER) (test code = 760) BASIC METABOLIC [id number] 03:55:00 Test Item Value Reference Range Interpretation Comments SODIUM (BEAKER) 142 meq/L 136-145 (test code = 381) POTASSIUM (BEAKER) 3.7 meq/L 3.5-5.1 (test code = 379) CHLORIDE (BEAKER) 105 meq/L 98-107 (test code = 382) CO2 (BEAKER) (test 27 meq/L 22-29 code = 355) BLOOD UREA NITROGEN 9 mg/dL 7-21 (BEAKER) (test code = 354) CREATININE (BEAKER) 0.73 mg/dL 0.57-1.25 (test code = 358) GLUCOSE RANDOM 91 mg/dL 70-105 (BEAKER) (test code = 652) CALCIUM (BEAKER) 8.0 mg/dL 8.4-10.2 L (test code = 697) EGFR (BEAKER) (test 105 mL/min/1.73 ESTIM ATED GFR IS code = 1092) sq m NOT ACCURATE CREATININE CLEARANCE IN PREDICTING GLOMERULAR FILTRATION RATE . ESTIMATED GFR I S NOT APPLICABLE FOR DIALYSIS PATIEN TS. Sensor Specialist ID - SAM [id number] 03:55:00 Test Item Value Reference Range Interpretation Comments MAGNESIUM (BEAKER) (test code = 1.6 mg/dL 1.6-2.6 627) Sensor Specialist ID - SAM [facility] W/PLT COUNT & AUTO [id number] 03:33:00 Test Item Value Reference Range Interpretation Comments WHITE BLOOD CELL COUNT 4.6 K/ L 3.5-10.5 (BEAKER) (test code = 775) RED BLOOD CELL COUNT 3.71 M/ L 4.63-6.08 L (BEAKER) (test code = 761) HEMOGLOBIN (BEAKER) 12.2 GM/DL 13.7-17.5 L Discorda nt HGB result (test code = 410) compared t o previous result; clinica l correlation req uired. HEMATOCRIT (BEAKER) 35.1 % 40.1-51.0 L (test code = 411) MEAN CORPUSCULAR 94.6 fL 79.0-92.2 H VOLUME (BEAKER) (test code = 753) MEAN CORPUSCULAR 32.9 pg 25.7-32.2 H HEMOGLOBIN (BEAKER) (test code = 751) MEAN CORPUSCULAR 34.8 GM/DL 32.3-36.5 HEMOGLOBIN CONC (BEAKER) (test code = 752) RED CELL DISTRIBUTION 12.7 % 11.6-14.4 WIDTH (BEAKER) (test code = 412) PLATELET COUNT 98 K/CU MM 150-450 L (BEAKER) (test code = 756) MEAN PLATELET VOLUME 9.7 fL 9.4-12.4 (BEAKER) (test code = 754) NUCLEATED RED BLOOD 0 /100 WBC 0-0 CELLS (BEAKER) (test code = 413) NEUTROPHILS RELATIVE 62 % PERCENT (BEAKER) (test code = 429) LYMPHOCYTES RELATIVE 26 % PERCENT (BEAKER) (test code = 430) MONOCYTES RELATIVE 10 % PERCENT (BEAKER) (test code = 431) EOSINOPHILS RELATIVE 1 % PERCENT (BEAKER) (test code = 432) BASOPHILS RELATIVE 1 % PERCENT (BEAKER) (test code = 437) NEUTROPHILS ABSOLUTE 2.86 K/ L 1.78-5.38 COUNT (BEAKER) (test code = 670) LYMPHOCYTES ABSOLUTE 1.21 K/ L 1.32-3.57 L COUNT (BEAKER) (test code = 414) MONOCYTES ABSOLUTE 0.48 K/ L 0.30-0.82 COUNT (BEAKER) (test code = 415) EOSINOPHILS ABSOLUTE 0.03 K/ L 0.04-0.54 L COUNT (BEAKER) (test code = 416) BASOPHILS ABSOLUTE 0.03 K/ L 0.01-0.08 COUNT (BEAKER) (test code = 417) IMMATURE 0 % 0-1 GRANULOCYTES-RELATIVE PERCENT (BEAKER) (test code = 2801) [id number] 01:01:00 Test Item Value Reference Range Interpretation Comments PARTIAL THROMBOPLASTIN TIME 29.9 seconds 22.5-36.0 (BEAKER) (test code = 760) Prior to initiating heparinTroponin [id number] 23:58:00 Test Item Value Reference Range Interpretation Comments Troponin I (test code = 53.52 ng/mL 0-0.03 44564-8) ABHISHEK (test code = ABHISHEK) Troponin I (TnI) levels must be interpreted in the context of the presenting symptoms and the clinical findings. Elevated TnI levels indicate myocardial damage, but are not specific for ischemic heart disease. Elevated TnI levels are seen in patients with other cardiac conditions (including myocarditis and congestive heart failure), and slight TnI elevations occur in patients with other conditions, including sepsis, renal failure, acidosis, acute neurological disease, and persistent tachyarrhythmia.Opera tor ID - PIAYA LOperator ID - PIAYA L Lab Interpretation (test Abnormal code = 24996-5) [facility]TR[facility] [id number] 23:58:00 Test Item Value Reference Range Interpretation Comments TROPONIN I (BEAKER) (test code = 53.52 ng/mL 0.00-0.03 397) Troponin I (TnI) levels must be interpreted in the context of the presenting symptoms and the clinical findings. Elevated TnI levels indicate myocardial damage, but are not specific for ischemic heart disease. Elevated TnI levels are seen in patients with other cardiac conditions (including myocarditis and congestive heart failure), and slight TnI elevations occur in patients with other conditions, including sepsis, renal failure, acidosis, acute neurological disease, and persistent tachyarrhythmia.Sensor Specialist ID - MARIA DOLORES Cantu ID - MARIA DOLORES LTRRADHA [id number] 18:20:00 Test Item Value Reference Range Interpretation Comments TROPONIN I (BEAKER) (test code = 115.11 ng/mL 0.00-0.03 397) Troponin I (TnI) levels must be interpreted in the context of the presenting symptoms and the clinical findings. Elevated TnI levels indicate myocardial damage, but are not specific for ischemic heart disease. Elevated TnI levels are seen in patients with other cardiac conditions (including myocarditis and congestive heart failure), and slight TnI elevations occur in patients with other conditions, including sepsis, renal failure, acidosis, acute neurological disease, and persistent tachyarrhythmia.Sensor Specialist ID - aahamidOkaitlynator ID - aahamidPOC ACTIVATED CLOTTING [id number] 16:45:00 Test Item Value Reference Range Interpretation Comments Activated Clotting Time 241 sec : 74 -137 seconds, (test code = 441) Baseline: TESTED AT [place] [address]: Sensor Specialist/Techni maria ID = [id number] for MN WILBUR, ONEIL [facility]PO[id number] 16:45:00 Test Item Value Reference Range Interpretation Comments ACTIVATED CLOTTING TIME 241 sec : 74 -137 seconds, (BEAKER) (test code = Baseli ne: TESTED AT 441) [place] [address]: Sensor Specialist/Techni maria ID = [id number] for [place] WILBUR, ONEIL [id number] 16:32:00 Test Item Value Reference Range Interpretation Comments ACTIVATED CLOTTING TIME 230 sec : 74 -137 seconds, (BEAKER) (test code = Baseli ne: TESTED AT 441) [place] [address]: Sensor Specialist/Techni maria ID = [id number] for MN WILBUR, ONEIL [id number] 15:56:00 Test Item Value Reference Range Interpretation Comments ACTIVATED CLOTTING TIME 120 sec : 74 -137 seconds, (BEAKER) (test code = Baseli ne: TESTED AT 441) [address], [address]: Sensor Specialist/Techni maria ID = [id number] for MN ONEIL BOWLES TROPONIN [id number] 14:08:00 Test Item Value Reference Range Interpretation Comments TROPONIN I (BEAKER) (test code = 79.95 ng/mL 0.00-0.03 397) Troponin I (TnI) levels must be interpreted in the context of the presenting symptoms and the clinical findings. Elevated TnI levels indicate myocardial damage, but are not specific for ischemic heart disease. Elevated TnI levels are seen in patients with other cardiac conditions (including myocarditis and congestive heart failure), and slight TnI elevations occur in patients with other conditions, including sepsis, renal failure, acidosis, acute neurological disease, and persistent tachyarrhythmia.Sensor Specialist ID - MOMO COperator ID - MOMO CB- type natriuretic [id number] 13:24:00 Test Item Value Reference Range Interpretation Comments BNP (test code = 61881-3) 439 pg/mL 0-100 H ABHISHEK (test code = ABHISHEK) Sensor Specialist ID - MOMO C Lab Interpretation (test Abnormal code = 31831-7) [facility] NATRIURETIC FACTOR (BNP)2020-06-22 13:24:00 Test Item Value Reference Range Interpretation Comments B-TYPE NATRIURETIC PEPTIDE (BEAKER) 439 pg/mL 0-100 H (test code = 700) Sensor Specialist ID - MOMO CTSH/T4 if [id number] 13:20:00 Test Item Value Reference Range Interpretation Comments TSH (test code = 2.788 See_Comment [Automated 54517-9) message] The system which generated this result transmit keshawn reference range : 0.350 - 4.940 uIU/mL. The reference range was not used to interpret this result as normal/abnormal . ABHISHEK (test code = ABHISHEK) Sensor Specialist ID - MOMO C Lab Interpretation Normal (test code = 70454-0) [facility] HospitalTSH/FREE T4 IF [id number] 13:20:00 Test Item Value Reference Range Interpretation Comments THYROID STIMULATING HORMONE 2.788 uIU/mL 0.350-4.940 (BEAKER) (test code = 772) Sensor Specialist ID - MOMO CRAD, CHEST, 1 VIEW, NON [id number] 13:05:00Reason for exam:->chest painShould this be performed at the bedside?->Yes [facility] : 1945 Sex: MFINAL REPORT INDICATION: chest pain COMPARISON: None TECHNIQUE: Single frontal view of the chest. FINDINGS: Lungs and pleura: Clear lungs. No effusion.Heart and mediastinum: Normal heart size. Unremarkable mediastinal contours.Osseous structures: No acute abnormality.Other: None. IMPRESSION: No acute intrathoracic abnormality. Signed: JR Santoyo Robert MDReport Verified Date/Time: 06/22/2020 13:05:44 Reading Location: [facility] Radiology Reading Room XR chest 1 view portable / [id number] 13:05:00 Interface, External Ris In - 06/22/2020 1:18 PM CDTFINAL REPORT INDICATION: chest pain COMPARISON: None TECHNIQUE: Single frontal view of the chest. FINDINGS: Lungs and pleura: Clear lungs. No effusion.Heart and mediastinum: Normal heart size. Unremarkable mediastinal contours.Osseous structures: No acute abnormality.Other: None. IMPRESSION: No acute intrathoracic abnormality. Signed: JR Santoyo Robert MDReport Verified Date/Time: 06/22/2020 13:05:44 Reading Location: [facility] Radiology Reading [facility] [id number] 12:55:00 Test Item Value Reference Range Interpretation Comments Triglycerides (test 62 mg/dL code = 2571-8) Cholesterol (test code 168 mg/dL = 2093-3) HDL (test code = 81 mg/dL 2084-9) LDL Calculated (test 75 mg/dL code = 17400-9) ABHISHEK (test code = ABHISHEK) Triglyceride Reference Range: Low Risk <150 Borderline 150-199 High Risk 200-499 Very High Risk >=500 Cholesterol Reference Range: Low Risk <200 Borderline 200-239 High Risk >240 HDL Cholesterol Reference Range: Low Risk >=60 High Risk <40 LDL Cholesterol Reference Range: Optimal <100 Near Optimal 100-129 Borderline 130-159 High 160-189 Very High >=190 Sensor Specialist ID - MOMO C [facility] HospitalHepatic function [id number] 12:55:00 Test Item Value Reference Range Interpretation Comments Protein, Total (test 7.0 See_Comment [Autom ated code = 2885-2) message] The system which generated this result transmit keshawn reference range : 6.0 - 8.3 gm/dL . The reference range was not u sed to interpret th is result as normal/abnormal . Albumin (test code = 4.1 g/dL 3.5-5 17244-9) Total Bilirubin (test 1.1 mg/dL 0.2-1.2 code = 1974-2) Bilirubin, Direct 0.5 mg/dL 0.1-0.5 (test code = 1968-7) Alkaline Phosphatase 88 U/L 40-150 (test code = 6768-6) AST (test code = 102 U/L 5-34 H 1920-8) ALT (test code = 47 U/L 6-55 1742-6) ABHISHEK (test code = ABHISHEK) Sensor Specialist ID - MOMO C Lab Interpretation Abnormal (test code = 12045-9) [facility] [id number] 12:55:00 Test Item Value Reference Range Interpretation Comments Phosphorus (test code = 3.2 mg/dL 2.3-4.7 2777-1) ABHISHEK (test code = ABHISHEK) Sensor Specialist ID - MOMO C Lab Interpretation (test Normal code = 78143-5) [facility] HospitalBASIC METABOLIC [id number] 12:55:00 Test Item Value Reference Range Interpretation Comments SODIUM (BEAKER) 142 meq/L 136-145 (test code = 381) POTASSIUM (BEAKER) 3.6 meq/L 3.5-5.1 (test code = 379) CHLORIDE (BEAKER) 105 meq/L 98-107 (test code = 382) CO2 (BEAKER) (test 21 meq/L 22-29 L code = 355) BLOOD UREA NITROGEN 9 mg/dL 7-21 (BEAKER) (test code = 354) CREATININE (BEAKER) 0.73 mg/dL 0.57-1.25 (test code = 358) GLUCOSE RANDOM 109 mg/dL 70-105 H (BEAKER) (test code = 652) CALCIUM (BEAKER) 9.2 mg/dL 8.4-10.2 (test code = 697) EGFR (BEAKER) (test 105 mL/min/1.73 ESTIM ATED GFR IS code = 1092) sq m NOT ACCURATE CREATININE CLEARANCE IN PREDICTING GLOMERULAR FILTRATION RATE . ESTIMATED GFR I S NOT APPLICABLE FOR DIALYSIS PATIEN TS. Sensor Specialist ID - MOMO [id number] 12:55:00 Test Item Value Reference Range Interpretation Comments MAGNESIUM (BEAKER) (test code = 1.5 mg/dL 1.6-2.6 L 627) Sensor Specialist ID - MOMO [id number] 12:55:00 Test Item Value Reference Range Interpretation Comments PHOSPHORUS (BEAKER) (test code = 3.2 mg/dL 2.3-4.7 604) Sensor Specialist ID - MOMO CLIPID [id number] 12:55:00 Test Item Value Reference Range Interpretation Comments TRIGLYCERIDES (BEAKER) (test code = 62 mg/dL 540) CHOLESTEROL (BEAKER) (test code = 168 mg/dL 631) HDL CHOLESTEROL (BEAKER) (test code 81 mg/dL = 976) LDL CHOLESTEROL CALCULATED (BEAKER) 75 mg/dL (test code = 633) Triglyceride Reference Range: Low Risk <150 Borderline 150-199 High Risk 200-499 Very High Risk >=500Cholesterol Reference Range: Low Risk <200 Borderline 200-239 High Risk >240HDL Cholesterol Reference Range: Low Risk >=60 High Risk <40LDL Cholesterol Reference Range: Optimal <100 Near Optimal 100-129 Borderline 130-159 High 160-189 Very High >=190 Sensor Specialist ID - MOMO CHEPATIC FUNCTION [id number] 12:55:00 Test Item Value Reference Range Interpretation Comments TOTAL PROTEIN (BEAKER) (test code = 7.0 gm/dL 6.0-8.3 770) ALBUMIN (BEAKER) (test code = 1145) 4.1 g/dL 3.5-5.0 BILIRUBIN TOTAL (BEAKER) (test code 1.1 mg/dL 0.2-1.2 = 377) BILIRUBIN DIRECT (BEAKER) (test 0.5 mg/dL 0.1-0.5 code = 706) ALKALINE PHOSPHATASE (BEAKER) (test 88 U/L 40-150 code = 346) AST (SGOT) (BEAKER) (test code = 102 U/L 5-34 H 353) ALT (SGPT) (BEAKER) (test code = 47 U/L 6-55 347) Sensor Specialist ID - MOMO CHemoglobin [id number] 12:50:00 Test Item Value Reference Range Interpretation Comments Hemoglobin A1C (test code = 4548-4) 4.6 % 4.3-6.1 Lab Interpretation (test code = Normal 33784-2) [facility] HospitalHEMOGLOBIN [id number] 12:50:00 Test Item Value Reference Range Interpretation Comments HEMOGLOBIN A1C (BEAKER) (test code = 4.6 % 4.3-6.1 368) Prothrombin time/[id number] 12:26:00 Test Item Value Reference Interpretation Comments Range Protime (test code = 12.5 See_Comment [Autom ated 0392-2) message] The system which generated this result transmitted reference range : 11.9 - 14.2 seconds. The reference range was not used to interpret this result as normal/abnormal . INR (test code = 0.97 See_Comment [Automated 8211-6) message] The system which generated this result transmitted reference range : <=5.90. The reference range was not used to interpret this result as normal/abnormal . ABHISHEK (test code = Effective 08/20/2018: ABHISHEK) PT Reference Range ChangeNew: 11.9-14.2 Previous: 11.7-14.7 RECOMMENDED COUMADIN/WARFARIN INR THERAPY RANGESSTANDARD DOSE: 2.0-3.0 Includes: PROPHYLAXIS for venous thrombosis, systemic embolization; TREATMENT for venous thrombosis and/or pulmonary embolus.HIGH RISK: Target INR is 2.5-3.5 for patients wiht mechanical heart valves. Lab Interpretation Normal (test code = 08644-0) [facility] HospitalPROTHROMBIN TIME/[id number] 12:26:00 Test Item Value Reference Range Interpretation Comments PROTIME (BEAKER) 12.5 seconds 11.9-14.2 (test code = 759) INR (BEAKER) (test 0.97 See_Comment [Automat ed message] code = 370) The system [employer] generated this result transmitted ref erence range: <=5.90. The reference range was not used to int erpret this result as normal/abnormal . Effective 08/20/2018: PT Reference Range ChangeNew: 11.9-14.2 Previous: 11.7- 14.7RECOMMENDED COUMADIN/WARFARIN INR THERAPY RANGESSTANDARD DOSE: 2.0-3.0 Includes: PROPHYLAXIS for venous thrombosis, systemic embolization; TREATMENT for venous thrombosis and/or pulmonary embolus.HIGH RISK: Target INR is2.5-3.5 for patients wiht mechanical heart valves.[id number] 12:26:00 Test Item Value Reference Range Interpretation Comments PARTIAL THROMBOPLASTIN TIME 28.7 seconds 22.5-36.0 (BEAKER) (test code = 760) CBC W/PLT COUNT & AUTO [id number] 12:21:00 Test Item Value Reference Range Interpretation Comments WHITE BLOOD CELL COUNT (BEAKER) 6.7 K/ L 3.5-10.5 (test code = 775) RED BLOOD CELL COUNT (BEAKER) 4.68 M/ L 4.63-6.08 (test code = 761) HEMOGLOBIN (BEAKER) (test code = 15.4 GM/DL 13.7-17.5 410) HEMATOCRIT (BEAKER) (test code = 44.3 % 40.1-51.0 411) MEAN CORPUSCULAR VOLUME (BEAKER) 94.7 fL 79.0-92.2 H (test code = 753) MEAN CORPUSCULAR HEMOGLOBIN 32.9 pg 25.7-32.2 H (BEAKER) (test code = 751) MEAN CORPUSCULAR HEMOGLOBIN CONC 34.8 GM/DL 32.3-36.5 (BEAKER) (test code = 752) RED CELL DISTRIBUTION WIDTH 12.4 % 11.6-14.4 (BEAKER) (test code = 412) PLATELET COUNT (BEAKER) (test 146 K/CU MM 150-450 L code = 756) MEAN PLATELET VOLUME (BEAKER) 10.0 fL 9.4-12.4 (test code = 754) NUCLEATED RED BLOOD CELLS 0 /100 WBC 0-0 (BEAKER) (test code = 413) NEUTROPHILS RELATIVE PERCENT 84 % (BEAKER) (test code = 429) LYMPHOCYTES RELATIVE PERCENT 11 % (BEAKER) (test code = 430) MONOCYTES RELATIVE PERCENT 4 % (BEAKER) (test code = 431) EOSINOPHILS RELATIVE PERCENT 0 % (BEAKER) (test code = 432) BASOPHILS RELATIVE PERCENT 1 % (BEAKER) (test code = 437) NEUTROPHILS ABSOLUTE COUNT 5.63 K/ L 1.78-5.38 H (BEAKER) (test code = 670) LYMPHOCYTES ABSOLUTE COUNT 0.73 K/ L 1.32-3.57 L (BEAKER) (test code = 414) MONOCYTES ABSOLUTE COUNT (BEAKER) 0.24 K/ L 0.30-0.82 L (test code = 415) EOSINOPHILS ABSOLUTE COUNT 0.01 K/ L 0.04-0.54 L (BEAKER) (test code = 416) BASOPHILS ABSOLUTE COUNT (BEAKER) 0.04 K/ L 0.01-0.08 (test code = 417) IMMATURE GRANULOCYTES-RELATIVE 1 % 0-1 PERCENT (BEAKER) (test code = 2801) [id number] 00:00:00Ordered by an unspecified provider.[facility]
[2020-07-07 10:06] LABS: Urine Blood 3+ (Negative); Urine Glucose Negative (Negative); Urine Protein 3+ (Negative); Urine Specific Gravity >=1.030 (1.005-1.030); Urine pH 5.5 (5.0-7.0)
--- NOTE | 2020-07-07 10:17 | EDPHYS ---
Physician Documentation [facility] Name: Monica Nova Age: 75 yrs Sex: Male : 1945 Arrival Date: 07/07/2020 Time: 09:37 Bed 13 Private MD: Aroldo Holt R ED Physician Rony Martinez HPI: 07/07 15:36 This 75 yrs old Male presents to ER via Ambulatory with complaints of Urinary kb Problem. 15:36 The patient presents with urinary symptoms, dysuria, urinary frequency. Onset: The kb symptoms/episode began/occurred yesterday. Modifying factors: The symptoms are alleviated by nothing, the symptoms are aggravated by urinating. Associated signs and symptoms: Pertinent positives: dysuria, Pertinent negatives: abdominal pain, constipation, diarrhea, fever, hematuria, nausea, vomiting. Severity of symptoms: At their worst the symptoms were moderate, in the emergency department the symptoms are unchanged. The patient has not experienced similar symptoms in the past. The patient has not recently seen a physician. Historical: - Allergies: 09:46 PENICILLINS; bb - PMHx: 09:46 High Cholesterol; Hypertension; HI; bb - PSHx: 09:46 cardiac stent; bb - Immunization history:: Adult Immunizations up to date. - Social history:: Smoking status: Patient denies any tobacco usage or history of. ROS: 15:35 Constitutional: Negative for fever, chills, and weight loss, Cardiovascular: Negative kb for chest pain, palpitations, and edema, Respiratory: Negative for shortness of breath, cough, wheezing, and pleuritic chest pain, Abdomen/GI: Negative for abdominal pain, nausea, vomiting, diarrhea, and constipation, MS/Extremity: Negative for injury and deformity, Skin: Negative for injury, rash, and discoloration, Neuro: Negative for headache, weakness, numbness, tingling, and seizure. 15:35 : Positive for urinary symptoms, urinary frequency, small amounts, burning with urination. Exam: 15:36 Constitutional: This is a well developed, well nourished patient who is awake, alert, kb and in no acute distress. Head/Face: Normocephalic, atraumatic. Respiratory: Respirations even and unlabored. No increased work of breathing, no retractions or nasal flaring. Abdomen/GI: Soft, non-tender. No distention Skin: Warm, dry with normal turgor. Normal color. MS/ Extremity: Pulses equal, no cyanosis. Neurovascular intact. Full, normal range of motion. Neuro: Awake and alert, GCS 15, oriented to person, place, time, and situation. Moves all extremities. Normal gait. Vital Signs: 09:43 BP 139 / 89; Pulse 91; Resp 16; Temp 99.2(O); Pulse Ox 99% on R/A; Weight 89.36 kg; bb Height 5 ft. 8 in. (172.72 cm); Pain 0/10; 09:43 Body Mass Index 29.95 (89.36 kg, 172.72 cm) bb MDM: 09:47 Patient medically screened. kb 15:34 Data reviewed: vital signs, nurses notes. Data interpreted: Pulse oximetry: on room air kb is 99 %. Interpretation: normal. Counseling: I had a detailed discussion with the patient and/or guardian regarding: the historical points, exam findings, and any diagnostic results supporting the discharge/admit diagnosis, lab results, the need for outpatient follow up, a family practitioner, to return to the emergency department if symptoms worsen or persist or if there are any questions or concerns that arise at home. 07/07 09:47 Order name: Urine Microscopic Only; Complete Time: 10:24 kb 07/07 10:06 Order name: Urine Dipstick-Ancillary; Complete Time: 10:09 EDCO 07/07 09:47 Order name: Urine Dipstick-Ancillary (obtain specimen); Complete Time: 10:07 kb 07/07 10:18 Order name: Urine Culture EDCO Administered Medications: 10:29 Drug: Pyridium 100 mg Route: PO; ll1 10:51 Follow up: Response: No adverse reaction; RASS: Alert and Calm (0) ll1 10:29 Drug: Cipro (ciprofloxacin) 500 mg Route: PO; ll1 10:52 Follow up: Response: No adverse reaction; RASS: Alert and Calm (0) ll1 Disposition: 07/08 06:46 Co-signature as Attending Physician, Rony Martinez MD I agree with the assessment and kdr plan of care. Disposition: 07/07/20 10:16 Discharged to Home. Impression: Urinary tract infection, site not specified. - Condition is Stable. - Discharge Instructions: Urinary Tract Infection, Adult, Uazx-bo-Opjm. - Prescriptions for Pyridium 200 mg Oral Tablet - take 1 tablet by ORAL route every 8 hours for 3 days; 9 tablet. Cipro 500 mg Oral Tablet - take 1 tablet by ORAL route every 12 hours for 10 days; 20 tablet. - Medication Reconciliation Form, Thank You Letter, Antibiotic Education, Prescription Opioid Use form. - Follow up: Emergency Department; When: As needed; Reason: Worsening of condition. Follow up: Private Physician; When: 2 - 3 days; Reason: Recheck today's complaints, Continuance of care, Re-evaluation by your physician. Signatures: Dispatcher [employer] EDMS Livia Draper, ULTRASOUND TECHNOLOGIST-C ULTRASOUND TECHNOLOGIST-Ckb Rony Martinez MD MD kdr Kathryn Choudhary RN RN Melany Andrews RN RN ll1 Corrections: (The following items were deleted from the chart) 07/07 10:30 10:16 07/07/2020 10:16 Discharged to Home. Impression: Urinary tract infection, site ll1 not specified. Condition is Stable. Forms are Medication Reconciliation Form, Thank You Letter, Antibiotic Education, Prescription Opioid Use. Follow up: Emergency Department; When: As needed; Reason: Worsening of condition. Follow up: Private Physician; When: 2 - 3 days; Reason: Recheck today's complaints, Continuance of care, Re-evaluation by your physician. kb
--- NOTE | 2020-07-07 10:17 | ER ---
Nurse's Notes [facility] Name: Monica Nova Age: 75 yrs Sex: Male : 1945 Arrival Date: 07/07/2020 Time: 09:37 Bed 13 Private MD: Aroldo Holt R Diagnosis: Urinary tract infection, site not specified Presentation: 07/07 09:43 Chief complaint: Patient states: Burning with urination and frequency that began Saturday bb evening. Pt recently had a urinary catheter placed during a cardiac procedure at [facility]. Coronavirus screen: Client denies travel out of the [place] in the last 14 days. Ebola Screen: Patient denies exposure to infectious person. Patient denies travel to an Ebola-affected area in the 21 days before illness onset. Initial Sepsis Screen: Does the patient meet any 2 criteria? No. Patient's initial sepsis screen is negative. Does the patient have a suspected source of infection? No. Patient's initial sepsis screen is negative. Risk Assessment: Do you want to hurt yourself or someone else? Patient reports no desire to harm self or others. Onset of symptoms was July 03, 2020. 09:43 Method Of Arrival: Ambulatory bb 09:43 Acuity: SIENNA 4 bb Historical: - Allergies: 09:46 PENICILLINS; bb - PMHx: 09:46 High Cholesterol; Hypertension; MN; bb - PSHx: 09:46 cardiac stent; bb - Immunization history:: Adult Immunizations up to date. - Social history:: Smoking status: Patient denies any tobacco usage or history of. Screenin:12 Abuse screen: Denies threats or abuse. Nutritional screening: No deficits noted. ll1 Tuberculosis screening: No symptoms or risk factors identified. Fall Risk None identified. Total [place] Fall Scale indicates No Risk (0-24 pts). Assessment: 10:10 General: Appears in no apparent distress. Behavior is calm, cooperative, appropriate ll1 for age. Pain: Complains of pain in pelvic Quality of pain is described as burning, aching, Aggravated by urinating. Neuro: No deficits noted. Cardiovascular: No deficits noted. Respiratory: No deficits noted. GI: No deficits noted. : Urine is cloudy, dark orange Reports burning with urination, urgency, urinary frequency, oliguria. 10:30 Reassessment: No changes from previously documented assessment. Patient and/or family ll1 updated on plan of care and expected duration. Pain level reassessed. Vital Signs: 09:43 BP 139 / 89; Pulse 91; Resp 16; Temp 99.2(O); Pulse Ox 99% on R/A; Weight 89.36 kg; bb Height 5 ft. 8 in. (172.72 cm); Pain 0/10; 09:43 Body Mass Index 29.95 (89.36 kg, 172.72 cm) bb ED Course: 09:37 Patient arrived in ED. mr 09:38 Aroldo Holt MD is Private Physician. mr 09:45 Triage completed. bb 09:46 Livia Draper FNP-C is [facility]. kb 09:46 Rony Martinez MD is Attending Physician. kb 09:46 Arm band placed on left wrist. bb 09:53 Melany Booker RN is Primary Nurse. ll1 10:07 Urine Microscopic Only Sent. ll1 10:12 Patient has correct armband on for positive identification. Bed in low position. Call ll1 light in reach. Side rails up X 1. Cardiac monitoring not applicable on this patient. 10:30 No provider procedures requiring assistance completed. Patient did not have IV access ll1 during this emergency room visit. Administered Medications: 10:29 Drug: Pyridium 100 mg Route: PO; ll1 10:51 Follow up: Response: No adverse reaction; RASS: Alert and Calm (0) ll1 10:29 Drug: Cipro (ciprofloxacin) 500 mg Route: PO; ll1 10:52 Follow up: Response: No adverse reaction; RASS: Alert and Calm (0) ll1 Outcome: 10:16 Discharge ordered by . kb 10:30 Patient left the ED. ll1 10:30 Discharged to home ambulatory. ll1 10:30 Condition: stable 10:30 Discharge instructions given to patient, Instructed on discharge instructions, follow up and referral plans. medication usage, Demonstrated understanding of instructions, follow-up care, medications, Prescriptions given X 2. Addendum: 07/10/2020 07:26 Addendum: Culture Results: Positive urine culture. No further action required. Bacteria e b sensitive to prescribed antibiotic. Signatures: Livia Draper FNP-C FNP-Ckb TerrellMisa ramos Brenda, RN RN bb Jami Laird Lynsay, RN RN ll1
[2020-07-07 10:18] LABS: Urine Bacteria 20-50 /HPF (NONE SEEN); Urine Mucus LIGHT /HPF (NONE SEEN); Urine RBC >50 /HPF (NONE SEEN)
[2020-07-07 10:35] VITALS: BP 139/89; TEMP 99.2; O2SAT 99
[2020-07-07] MEDS ORDERED: CIPROFLOXACIN HCL 500 MG TAB ONE (10:43)
[2020-07-07] MEDS ORDERED: PHENAZOPYRIDINE 100MG TAB PO ONE (10:44)
== END 2020-07-07 10:30 | disposition home or self-care (01) ==
LOC: ER 09:34
DX: N39.0 Urinary tract infection, site not specified (principal); I10 Essential (primary) hypertension; Z95.818 Presence of other cardiac implants and grafts; Z88.0 Allergy status to penicillin
CPT/HCPCS: 81003; 81015; 87077; 87086; 87088; 87186; 99283

== ENCOUNTER 2020-09-12 11:43 | Observation (INO) | payer OTHER ==
--- OUTSIDE RECORDS SUMMARY | 2020-09-12 11:46 | XMS REPORT | Continuity of Care Document ---
:1945 Author Organization [facility] t Address [address] [place] [address] Care Team Providers Name Role Phone Xiang Connolly Primary Care Physician Unavailable Everett PATEL Attending Clinician Anatoly Rhoades MD Attending Clinician Manuel HOBBS, A Attending Clinician Unavailable Everett PATEL Attending Clinician EVERETT Attending Clinician Unavailable EVERETT Admitting Clinician Unavailable Payers Payer Name Policy Type Policy Effective Date Expiration Date Sour ce Number AETNA - MEDICARE [id number] [address] [facility] [address] [facility] MGD CAREAETNA 00:00:00 - Medical MEDICARE HMO Center [id number], [place] [address]Fzeu Contracted Problems Condition Condition Condition Status Onset Resolution Last Treating Co mments Source Name Details Category Date Date Treatment Clinician Date STEMI (ST STEMI (ST 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[facility] 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 [facility] - myocardial myocardial 00:00: Me dical infarction infarction 00 Ce nter ) ) Allergies, Adverse Reactions, Alerts Allergy Allergy Status Severity Reaction(s) Onset Inactive Treating Comm ents Source Name Type Date Date Clinician Penicill Propensi Active Other (See 1974- Made [facility] Comments) 03-25 patient [facility] - adverse 00:00: pass out Medical reaction 00 Center s Social History Social Habit Start Date Stop Date Quantity Comments Source History of tobacco Current smoker [facility] use [facility] Sex Assigned At [facility] martha - [facility] Tobacco use and 2020-06-27 2020-06-27 Former user GIA Navarro ukes - exposure 00:00:00 00:00:00 Medical Center Alcohol intake 2020-06-27 2020-06-27 Current drinker GIA adam [facility] - 00:00:00 00:00:00 of alcohol Medical Center (finding) History [facility] 2020-06-22 2020-06-[address] [facility] - Alcohol Frequency 00:00:00 00:00:00 Medical Center History [facility] 2020-06-22 2020-06-[address] [facility] - Alcohol Std Drinks 00:00:00 00:00:00 Medica Center History [facility] 2020-06-22 2020-06-22 1 [facility] Binge 00:00:00 00:00:[address] Alcohol Comment 2020-06-22 2020-06-22 1.5L/week [facility] k[facility]ar - 00:00:00 00:00:00 [facility] Smoking Status Start Date Stop Date Source Former smoker 2020-06-27 00:00:00 2020-06-27 00:00:00 [facility] Medications Ordered Filled Start Stop Current Ordering [...] QD Take [address] (PLAVIX) 75 -03 04-03 tablet (75 L ukes - mg tablet 00:00: 23:59 mg total) Me dical 00 :00 by mouth Center daily. aspirin 81 2021- Yes 81mg QD Take [address] MG chewable 4- 04-03 tablet (81 L ukes - tablet 00:00: 23:59 mg total) Medic al 00 :00 by mouth Center daily. rosuvastati 2021-0 2021- No 10mg QD Take [address] n (CRESTOR) 06-24 by mouth Glo es - 10 MG 13:21: 00:00 daily. Medical tablet 47 :00 Center metoprolol 2020- No 200mg QD Take [address] succinate 4- 04-02 mg by [facility] - (TOPROL-XL) 13:21: 00:00 mouth Medi jt 200 MG 24 47 :00 daily. Center hr tablet amLODIPine- 2020- No 1{capsu QD Take [address] benazepriL 06-24 le} capsule by Kely thomas - (LOTREL) 13:21: 00:00 mouth Medical 10-20 mg 47 :00 daily. Center per capsule rosuvastati 2021- Yes 10mg QD Take 0.[address] n (CRESTOR) 06-24 tablets Luke s - 20 MG 00:00: 23:59 (10 mg Medical tablet 00 :00 total) by Center mouth daily. apixaban 2021- Yes 5mg Q.5D Take [address] (ELIQUIS) 5 06-24- tablet (5 Kely kes - mg Tab [...] Source Systolic blood 2020-06-24 11:00:00 114 mm[Hg] [facility] Diastolic blood 2020-06-24 11:00:00 74 mm[Hg] [facility] S [facility] Heart rate 2020-06-24 11:00:00 89 /min [facility] Body temperature 2020-06-24 11:00:00 37.67 Lucy [facility] Respiratory rate 2020-06-24 11:00:00 19 /min [facility] Body weight 2020-06-24 11:00:00 92.987 kg [facility] BMI 2020-06-24 11:00:00 31.17 kg/m2 [facility] Oxygen saturation in 2020-06-24 11:00:00 96 /min [facility] - Arterial blood by Medical Ce nter Pulse oximetry Body height 2020-06-22 11:26:00 172.7 cm [facility] Procedures Procedure Date / Time Performed Performing Clinician Sour e MAGNESIUM 2020-06-24 06:02:[address] [facility] CBC W/PLT COUNT & AUTO 2020-06-24 06:02:00 Eugenie Alme[address] [facility] - DIFFERENTIAL [facility] BASIC METABOLIC PANEL 2020-06-24 06:02:00 Eugenie Almeida [facility] - (7) [facility] 2D ECHO W/ DOPPLER 2020-06-23 18:31:31 Gatito Martinez [facility] - (CW/PW/COLOR) [facility] APTT 2020-06-23 06:01:00 [facility] ECG 12-LEAD 2020-06-23 05:13:43 [facility] CBC W/PLT COUNT & AUTO 2020-06-23 03:08:[address] [facility] - DIFFERENTIAL [facility] BASIC METABOLIC PANEL 2020-06-23 03:08:00 Eugenie Almeida [facility] - (7) [facility] MAGNESIUM 2020-06-23 03:08:[address] [facility] APTT 2020-06-23 00:31:00 [facility] TROPONIN I 2020-06-22 23:07:00 Gatito Martinez [facility] TROPONIN I 2020-06-22 17:29:00 Gatito Martinez [facility] POCT-ACT 2020-06-22 16:29:00 Kelli Liveboranjith [facility] POCT-ACT 2020-06-22 16:16:00 Bayronradha [facility] POCT-ACT 2020-06-22 15:40:00 Bayronradha [facility] L CATH & PCI 2020-06-22 14:48:00 [facility] 12-[facility]AD 2020-06-22 13:09:47 Unknown, Hl7 [facility] XR CHEST 1 VIEW 2020-06-22 12:34:00 Gatito Martinez [facility]/BEDSIDE [facility] CBC W/PLT COUNT & AUTO 2020-06-22 12:07:00 Gatito Martinez [facility] HEMOGLOBIN A1C 2020-06-22 12:07:00 Gatito Martinez [facility] LIPID PANEL 2020-06-22 12:07:[address] [facility] BASIC METABOLIC PANEL 2020-06-22 12:07:00 Gatito Martinez [facility] - (7) [facility] HEPATIC FUNCTION PANEL 2020-06-22 12:07:00 Gatito Martinez [facility] MAGNESIUM 2020-06-22 12:07:00 Gatito Martinez [facility] PHOSPHORUS 2020-06-22 12:07:00 Gatito Martinez [facility] TSH/FREE T4 IF INDICATED 2020-06-22 12:07:00 Gatito Martinez [facility] TROPONIN I 2020-06-22 12:07:00 Gatito Martinez [facility] B-TYPE NATRIURETIC 2020-06-22 12:07:[address] [facility] FACTOR (BNP) [facility] PROTHROMBIN TIME/INR 2020-06-22 12:07:00 Gatito Martinez [facility] APTT 2020-06-22 12:07:00 Brouillard, Gatito [facility] ECG 12-LEAD 2020-06-22 11:20:42 Gatito Martinez [facility] L CATH & PCI 2020-06-22 11:00:00 Dony Live [facility] CARDIAC CATH REPORT - 2020-06-22 00:00:00 Provider, Maribeth [facility] - SCAN Scanning [facility] REPORT OF PROCEDURE - 2020-06-22 00:00:00 Provider, Default [facility] - ENDOSCOPY SCAN Scanning [facility] VASCULAR DIAGRAM -SCAN 2020-06-22 00:00:00 Provider, Default [facility] - Scanning [facility] Plan of Care Planned Activity Planned Date [...] 00:00:00 (1 of 1 - Medical Center [id number] PCV13) [code = PNEUMOCOCCAL 65+ YRS (1 of 1 - IZGK24_Silojyt PCV13)] Future Scheduled 1996 SHINGLES VACCINES (1 [...] HEPATITIS C Medical Center SCREENING] Future Scheduled 1958 COVID-19 VACCINE (1) [facility] - Test 00:00:00 [code = COVID-[address] VACCINE (1)] Future Scheduled [address] [facility] - Test 00:00:00 malignant neoplasm of Medica l Center colon (procedure) [code = 244971621] Encounters Start End Encounter Admission Attending Care Care Encounter Source Date/Time Date/Time Type Type Clinicians Facility Department ID 2020-08-11 2020-08-11 Office ANAMIKA Live [id number] 08:53:53 11:05:39 Visit Mahboob AMBULATOR [id number] Y [id number] Results Test Description Test Time Test Comments Results Result Sourc e Comments VASCULAR DIAGRAM 2020-06-24 Ordered by an [facility] -SCAN 8 unspecified provider. Glo es - 12:59:38 [facility] CARDIAC CATH Ordered by an [facility] REPORT - SCAN 5 unspecified provider. [facility] - 10:32:30 [facility] CARDIAC CATH Ordered by an [facility] REPORT - SCAN 5 unspecified provider. [facility] - 10:32:30 [facility] Transthoracic 2D Ejection FractionSLEH [facility] echo w/ doppler 2 ECHO HEARTLAB [facility] - (cw/pw/color) 09:39:10 [facility] CPACSInterce, [place] External Ris In - 06/24/2020 9:39 AM CDTTransthoracic Echocardiography Report (TTE) Demographics Patient Name JASPREET LIAO Date of Study 06/23/2020 BARRY Gender Male Visit Number [id number] Race Room Number 1010 Number Date of 1945 Referring Gatito Martinez Physician Age 75 year(s) Master Barber SANTIAGO [place] Interpreting Luis Eduardo Britton MD [...] nts Sodium (test code = 141 meq/L 606-490 3180-2) Potassium (test code = 3.3 meq/L 3.5-5.1 L 2823-3) Chloride (test code = 103 meq/L 98-107 2075-0) CO2 (test code = 2027-9) 30 meq/L 22-29 H BUN (test code = 3094-0) 7 mg/dL 7-21 Creatinine (test code = 0.69 mg/dL 0.57-1.25 2160-0) Glucose (test code = 104 mg/dL 70-105 2345-7) Calcium (test code = 8.1 mg/dL 8.4-10.2 L 73452-1) EGFR (test code = 77715-2) 112 mL/min/1.73 sq m ESTIMATED GFR IS NOT ACCURATE CREATININE JESÚS [place]ADISON IN PREDICTING GLOMERULAR FILT RATION RATE. ESTIMATED GFR IS NOT APPLICAB LE FOR DIALYSIS PATIEN TS. ABHISHEK (test code = ABHISHEK) Kitchen Designer ID - EDASI Lab Interpretation (test Abnormal code = 53039-0) [facility] 06:57:00 Test Item Value Reference Range Interpretation Comments Magnesium (test code = 1.6 mg/dL 1.6-2.6 60252-7) ABHISHEK (test code = ABHISHEK) Kitchen Designer ID - EDASI Lab Interpretation (test Normal code = 73166-0) [facility]OLIC [id number] 06:57:00 Test Item Value Reference Range Interpretation [...] S NOT APPLICABLE FOR DIALYSIS PATIEN TS. Kitchen Designer ID - [id number] 06:57:00 Test Item Value Reference Range Interpretation Comments MAGNESIUM (BEAKER) (test code = 1.6 mg/dL 1.6-2.6 627) Kitchen Designer ID - EDASICBC with platelet count + automated [id number] 06:26:00 Test Item Value Reference Range Interpretation Comments WBC (test code = 6690-2) 4.9 See_Comment [A utomated message] The system [employer] generated this result transmitted ref erence range: 3.5 - 10 .5 K/L. The refe rence range was not u sed to interpret this result as normal/abnor mal. RBC (test code = 789-8) 3.89 See_Comment L [Au tomated message] The system [employer] generated this result transmitted ref erence range: 4.63 - 6 .08 M/L. The refe rence range was not u sed to interpret this result as normal/abnor mal. MCHC (test code = 786-4) 34.6 See_Comment L [A utomated message] The system [employer] generated this result transmitted ref erence range: [...] L [Aut omated message] 777-3) The system [employer] generated this result transmitted ref erence range: 150 - 45 0 K/CU MM. The referen ce range was not u sed to interpret this result as normal/abnor mal. MPV (test code = 10.0 fL 9.4-12.4 53527-0) nRBC (test code = 413) 0 See_Comment [Aut omated message] The system [employer] generated this result transmitted ref erence range: [...] See_Comment [Aut omated message] 670) The system [employer] generated this result transmitted ref erence range: 1.78 - 5 .38 K/L. The refe rence range was not u sed to interpret this result as normal/abnor mal. # Lymphs (test code = 1.18 See_Comment L [Auto mated message] 414) The system [employer] generated this result transmitted ref erence range: 1.32 - 3 .57 K/L. The refe rence range was not u sed to interpret this result as normal/abnor mal. # Monos (test code = 0.46 See_Comment [Autom ated message] 415) The system [employer] generated this result transmitted ref erence range: 0.30 - 0 .82 K/L. The refe rence range was not u sed to interpret this result as normal/abnor mal. # Eos (test code = 416) 0.01 See_Comment L [Au tomated message] The system [employer] generated this result transmitted ref erence range: 0.04 - 0 .54 K/L. The refe rence range was not u sed to interpret this result as normal/abnor mal. # Baso (test code = 417) 0.01 See_Comment [A utomated message] The system [employer] generated this result transmitted ref erence range: 0.01 - 0 .08 K/L. The refe rence range was not u sed to interpret this result as normal/abnor mal. Immature 0 % 0-1 Granulocytes-Relative (test code = 2801) Lab Interpretation (test Abnormal code = 82505-3) [facility] W/PLT COUNT & AUTO [id number] 06:26:00 Test Item Value Reference Range Interpretation [...] (BEAKER) (test code = 2801) ECG 12 [id number] 08:26:49Interface, External Ris In - 06/23/2020 8:26 AM CDTVentricular Rate 58 BPMAtrial Rate 64 BPMQRS Duration 100 msQ-T Interval 462 msQTC Calculation(Bazett) 453 msR Friendly -39 degreesT Friendly 123 degreesAtrial fibrillation with slow ventricular responseLeft axis deviationPulmonary disease patternNonspecificST and T wave abnormalityProlonged QTAbnormal ECGWhen compared with ECG of 22-Jun-2020 13:09:47No significant change was foundConfirmed by Ben Godfrey ([id number]) on 06/23/2020 8:26:45 [facility] 06:34:00 Test Item Value Reference Range Interpretation Comments PTT (test code = 91.0 See_Comment H [Automated message] 47268-3) The system [employer] generated this result transmitted ref erence range: 22.5 - 3 6.0 seconds. The reference range was not used to int erpret this result as normal/abnormal . Lab Interpretation (test Abnormal code = 77583-1) [facility] CenterAPTT20[facility] 06:34:00 Test Item Value Reference Range Interpretation Comments PARTIAL THROMBOPLASTIN TIME 91.0 seconds 22.5-36.0 H (BEAKER) (test code = 760) BASIC METABOLIC [id number] 03:55:00 Test Item Value Reference Range Interpretation [...] S NOT APPLICABLE FOR DIALYSIS PATIEN TS. Kitchen Designer ID - SAM [id number] 03:55:00 Test Item Value Reference Range Interpretation Comments MAGNESIUM (BEAKER) (test code = 1.6 mg/dL 1.6-2.6 627) Kitchen Designer ID - SAM MCBC W/PLT COUNT & AUTO [id number] 03:33:00 Test Item Value Reference Range Interpretation [...] GRANULOCYTES-RELATIVE PERCENT (BEAKER) (test code = 2801) [id number] 01:01:00 Test Item Value Reference Range Interpretation Comments PARTIAL THROMBOPLASTIN TIME 29.9 seconds 22.5-36.0 (BEAKER) (test code = 760) Prior to initiating heparinTroponin [id number] 23:58:00 Test Item Value Reference Range Interpretation Comments Troponin I (test code = 53.52 ng/mL 0-0.03 88541-3) ABHISHEK (test code = ABHISHEK) Troponin I [...] disease, and persistent tachyarrhythmia.Opera tor ID - MARIA DOLORES Cantu ID - PIAYA L Lab Interpretation (test Abnormal code = 43683-0) [facility] CenterTROPODIGN[facility] [id number] 23:58:00 Test Item Value Reference Range Interpretation [...] failure, acidosis, acute neurological disease, and persistent tachyarrhythmia.Kitchen Designer ID - MARIA DOLORES Cantu ID - PIAYA LTROPONIN [id number] 18:20:00 Test Item Value Reference Range Interpretation [...] failure, acidosis, acute neurological disease, and persistent tachyarrhythmia.Kitchen Designer ID - aahamidOperator ID - aahamidPOC ACTIVATED CLOTTING [id number] 16:45:00 Test Item Value Reference Range Interpretation Comments Activated Clotting Time 241 sec : 74 -137 seconds, (test code = 441) Baseline: TESTED AT [facility] [address], [address]: Kitchen Designer/Techni maria ID = [id number] for ONEIL TOBAR [facility] CenterPOCT-[id number] 16:45:00 Test Item Value Reference Range Interpretation Comments ACTIVATED CLOTTING TIME 241 sec : 74 -137 seconds, (BEAKER) (test code = Baseli ne: TESTED AT 441) [facility] [address], [address]: Kitchen Designer/Techni maria ID = [id number] for [place] WILBUR, ONEIL [id number] 16:32:00 Test Item Value Reference Range Interpretation Comments ACTIVATED CLOTTING TIME 230 sec : 74 -137 seconds, (BEAKER) (test code = Baseli ne: TESTED AT 441) [facility] [address] [facility], [facility] 30: Kitchen Designer/Techni maria ID = [id number] for [place] W[place], ONEIL [id number] 15:56:00 Test Item Value Reference Range Interpretation Comments ACTIVATED CLOTTING TIME 120 sec : 74 -137 seconds, (BEAKER) (test code = Baseli ne: TESTED AT 441) [facility] [address] [facility] [facility], [facility] 30: Kitchen Designer/Techni maria ID = [id number] for [place], ONEIL TROPONIN [id number] 14:08:00 Test Item Value Reference Range Interpretation [...] failure, acidosis, acute neurological disease, and persistent tachyarrhythmia.Kitchen Designer ID - MOMO COperator ID - MOMO CB- type natriuretic [id number] 13:24:00 Test Item Value Reference Range Interpretation Comments BNP (test code = 22715-5) 439 pg/mL 0-100 H ABHISHEK (test code = ABHISHEK) Kitchen Designer ID - MOMO C Lab Interpretation (test Abnormal code = 77051-5) [facility] CenterB-TYPE NATRIURETIC FACTOR (BNP)2020-06-22 13:24:00 Test Item Value Reference Range Interpretation Comments B-TYPE NATRIURETIC PEPTIDE (BEAKER) 439 pg/mL 0-100 H (test code = 700) Kitchen Designer ID - MOMO CTSH/T4 if [id number] 13:20:00 Test Item Value Reference Range Interpretation Comments TSH (test code = 2.788 See_Comment [Automated 12181-5) message] The system which generated this result transmit keshawn reference range : 0.350 - 4.940 uIU/mL. The reference range was not used to interpret this result as normal/abnormal . ABHISHEK (test code = ABHISHEK) Kitchen Designer ID - MOMO C Lab Interpretation Normal (test code = 21858-0) [facility] CenterTSH/FREE T4 IF [id number] 13:20:00 Test Item Value Reference Range Interpretation Comments THYROID STIMULATING HORMONE 2.788 uIU/mL 0.350-4.940 (BEAKER) (test code = 772) Kitchen Designer ID - MOMO CRAD, CHEST, 1 VIEW, NON [id number] 13:05:00Reason for exam:->chest painShould this be performed at the bedside?->Yes [facility] 1945 Sex: MFINAL REPORT INDICATION: chest pain COMPARISON: None TECHNIQUE: Single frontal view of the chest. FINDINGS: Lungs and pleura: Clear lungs. No effusion.Heart and mediastinum: Normal heart size. Unremarkable mediastinal contours.Osseous structures: No acute abnormality.Other: None. IMPRESSION: No acute intrathoracic abnormality. Signed: JR Santoyo Robert MDReport Verified Date/Time: 06/22/2020 13:05:44 Reading Location: [facility] Radiology Reading Room XR chest 1 view portable / [id number] 13:05:00 Interface, External Ris In - 06/22/2020 1:18 PM CDTFINAL REPORT INDICATION: chest pain COMPARISON: None TECHNIQUE: Single frontal view of the chest. FINDINGS: Lungs and pleura: Clear lungs. No effusion.Heart and mediastinum: Normal heart size. Unremarkable mediastinal contours.Osseous structures: No acute abnormality.Other: None. IMPRESSION: No acute intrathoracic abnormality. Signed: JR Santoyo Robert MDReport Verified Date/Time: 06/22/2020 13:05:44 Reading Location: [facility] Radiology Reading [facility] [id number] 12:55:00 Test Item Value Reference Range Interpretation Comments Triglycerides (test 62 mg/dL code = 2571-8) Cholesterol (test code 168 mg/dL = 3-3) HDL (test code = 81 mg/dL 2084-9) LDL Calculated (test 75 mg/dL code = 69189-6) ABHISHEK (test code = ABHISHEK) Triglyceride Reference Range: Low Risk <150 Borderline 150-199 High Risk 200-499 Very High Risk >=500 Cholesterol Reference Range: Low Risk <200 Borderline 200-239 High Risk >240 HDL Cholesterol Reference Range: Low Risk >=60 High Risk <40 LDL Cholesterol Reference Range: Optimal <100 Near Optimal 100-129 Borderline 130-159 High 160-189 Very High >=190 Kitchen Designer ID - MOMO Sherwood [facility]Hepatic function [id number] 12:55:00 Test Item Value Reference Range Interpretation Comments Protein, Total (test 7.0 See_Comment [Autom ated code = 2885-2) message] The system which generated this result transmit keshawn reference range : 6.0 - 8.3 gm/dL . The reference range was not u sed to interpret th is result as normal/abnormal . Albumin (test code = 4.1 g/dL 3.5-5 78022-7) Total Bilirubin (test 1.1 mg/dL 0.2-1.2 code = 1974-2) Bilirubin, Direct 0.5 mg/dL 0.1-0.5 (test code = 1968-7) Alkaline Phosphatase 88 U/L 40-150 (test code = 6768-6) AST (test code = 102 U/L 5-34 H 1920-8) ALT (test code = 47 U/L 6-55 1742-6) ABHISHEK (test code = ABHISHEK) Kitchen Designer ID - MOMO C Lab Interpretation Abnormal (test code = 64424-4) [facility] CenterPhosphorus2021-03-31 12:55:00 Test Item Value Reference Range Interpretation Comments Phosphorus (test code = 3.2 mg/dL 2.3-4.7 2777-1) ABHISHEK (test code = ABHISHEK) Kitchen Designer ID - MOMO C Lab Interpretation (test Normal code = 27755-8) [facility] CenterBASIC METABOLIC [id number] 12:55:00 Test Item Value Reference Range Interpretation [...] S NOT APPLICABLE FOR DIALYSIS PATIEN TS. Kitchen Designer ID - MOMO [id number] 12:55:00 Test Item Value Reference Range Interpretation Comments MAGNESIUM (BEAKER) (test code = 1.5 mg/dL 1.6-2.6 L 627) Kitchen Designer ID - MOMO [id number] 12:55:00 Test Item Value Reference Range Interpretation Comments PHOSPHORUS (BEAKER) (test code = 3.2 mg/dL 2.3-4.7 604) Kitchen Designer ID - MOMO CLIPID [id number] 12:55:00 Test Item Value Reference Range Interpretation [...] Borderline 130-159 High 160-189 Very High >=190 Kitchen Designer ID - MOMO CHEPATIC FUNCTION [id number] 12:55:00 Test Item Value Reference Range Interpretation [...] (test code = 47 U/L 6-55 347) Kitchen Designer ID - MOMO CHemoglobin [id number] 12:50:00 Test Item Value Reference Range Interpretation Comments Hemoglobin A1C (test code = 4548-4) 4.6 % 4.3-6.1 Lab Interpretation (test code = Normal 74270-7) [facility] CenterHEMOGLOBIN [id number] 12:50:00 Test Item Value Reference Range Interpretation Comments HEMOGLOBIN A1C (BEAKER) (test code = 4.6 % 4.3-6.1 368) Prothrombin time/[id number] 12:26:00 Test Item Value Reference Interpretation Comments Range Protime (test code = 12.5 See_Comment [Autom ated 4557-2) message] The system which generated this result transmitted reference range : 11.9 - 14.2 seconds. The reference range was not used to interpret this result as normal/abnormal . INR (test code = 0.97 See_Comment [Automated 6301-6) message] The system which generated this result [...] valves. Lab Interpretation Normal (test code = 86379-5) [facility] CenterPROTHROMBIN TIME/[id number] 12:26:00 Test Item Value Reference Range Interpretation Comments PROTIME (BEAKER) 12.5 seconds 11.9-14.2 (test code = 759) INR (BEAKER) (test 0.97 See_Comment [Automat ed message] code = 370) The system [employer] h generated this result transmitted ref erence range: <=5.90. The reference range was not used to int erpret this result as normal/abnormal . Effective 08/20/2018: PT Reference Range ChangeNew: 11.9-14.2 Previous: 11.7- 14.7RECOMMENDED COUMADIN/WARFARIN INR THERAPY RANGESSTANDARD DOSE: 2.0-3.0 Includes: PROPHYLAXIS for venous thrombosis, systemic embolization; TREATMENT for venous thrombosis and/or pulmonary embolus.HIGH RISK: Target INR is2.5-3.5 for patients wiht mechanical heart valves.[id number] 12:26:00 Test Item Value Reference Range Interpretation Comments PARTIAL THROMBOPLASTIN TIME 28.7 seconds 22.5-36.0 (BEAKER) (test code = 760) CBC W/PLT COUNT & AUTO [id number] 12:21:00 Test Item Value Reference Range Interpretation [...] 0-1 PERCENT (BEAKER) (test code = 2801) [id number] 00:00:00Ordered by an unspecified provider.[facility]
[2020-09-12 12:20] LABS: Absolute Lymphocytes (CBC) 2.4 K/uL (0.7-4.9); Basophils % 0.8 % (0-1.3); Hematocrit 45.1 % (39.6-49.0); MPV 7.9 fL (7.6-11.3); RBC Red Blood Cell Count 4.67 M/uL (4.33-5.43)
[2020-09-12 12:27] LABS: Protime INR 1.09
--- NOTE | 2020-09-12 12:39 | RAD REPORT ---
EXAM DESCRIPTION: RAD - Chest Single View - 09/12/2020 12:19 pm CLINICAL HISTORY: CHEST PAIN Chest pain. COMPARISON: Chest Single View dated 06/22/2020; Chest Pa And Lat (2 Views) dated 09/02/2018; Chest Pa And Lat (2 Views) dated 01/07/2017; CHEST PA AND LAT 2 VIEW dated 02/17/2008 FINDINGS: Portable technique limits examination quality. The lungs are grossly clear. The heart is normal in size. No displaced fractures. IMPRESSION: No acute intrathoracic process suspected.
[2020-09-12 12:57] LABS: ALT/SGPT 48 U/L (12-78); AST/SGOT 77 U/L (15-37); Albumin 3.7 g/dL (3.4-5.0); Alkaline Phosphatase 85 U/L (45-117); BUN Blood Urea Nitrogen 6 mg/dL (7-18); Bicarbonate 29 mmol/L (21-32); Bilirubin Direct 0.2 mg/dL (0-0.2); Bilirubin Total 0.8 mg/dL (0.2-1.0); Glucose Level 78 mg/dL (74-106); Magnesium 1.6 mg/dL (1.8-2.4); NT PRO-BNP 642 pg/mL (<125); Sodium Level 144 mmol/L (136-145); Troponin (Emerg Dept Use Only) 0.02 ng/mL (0.0-0.045)
[2020-09-12 13:00] LABS: Potassium 2.9 mmol/L (3.5-5.1)
--- NOTE | 2020-09-12 13:19 | RAD REPORT ---
EXAM DESCRIPTION: CT - Head Brain Wo Cont - 09/12/2020 1:14 pm CLINICAL HISTORY: SYNCOPE Headache, drowsiness COMPARISON: No comparisons TECHNIQUE: All CT scans are performed using dose optimization technique as appropriate and may inclu de automated exposure control or mA/KV adjustment according to patient size. FINDINGS: No intracranial hemorrhage, hydrocephalus or extra-axial fluid collection.No areas of brai n edema or evidence of midline shift. The paranasal sinuses and mastoids are clear. The calvarium is intact. IMPRESSION: No acute intracranial abnormality.
[2020-09-12 13:27] LABS: Blood Morphology Comment NOT SEEN (NOT SEEN); Platelet Estimate DECR
[2020-09-12] MEDS ORDERED: NITROGLYCERIN 0.4 MG/TAB SL ONE (13:53)
--- NOTE | 2020-09-12 14:01 | EDPHYS ---
Physician Documentation [facility] Name: Monica Nova Age: 75 yrs Sex: Male : 1945 Arrival Date: 09/12/2020 Time: 11:47 Bed 3 Private MD: ED Physician Rocael Chin HPI: 09/12 13:56 This 75 yrs old Male presents to ER via Wheelchair with complaints of episode ma2 of sweating, sob and right arm numbness . 13:56 Onset: gradually, 1 hour(s) ago. Associated signs and symptoms: Pertinent positives: ma2 Pertinent negatives: abdominal pain, diaphoresis, headache, lower extremity pain. Severity of pain: At its worst the pain was mild in the emergency department the pain is unchanged. The patient has experienced a previous episode. Historical: - Allergies: 11:49 PENICILLINS; ll1 - Home Meds: 12:14 apixaban oral 5 mg oral 2 times per day [Active]; clopidogrel 75 mg oral tab 1 tab once iw daily [Active]; lisinopril 20 mg Oral tab 1 tab once daily [Active]; rosuvastatin 10 mg oral tab 1 tab once daily [Active]; - PMHx: 11:49 High Cholesterol; Hypertension; [place]; ll1 - PSHx: 11:49 cardiac stent; ll1 - Immunization history:: Client reports receiving the 2nd dose of the Covid vaccine, Flu vaccine is not up to date. - Social history:: Smoking status: Patient denies any tobacco usage or history of. - Family history:: not pertinent. ROS: 13:56 Constitutional: Negative for fever, chills, and weight loss. ma2 13:56 All other systems are negative. Exam: 13:56 Constitutional: This is a well developed, well nourished patient who is awake, alert, ma2 and in no acute distress. Eyes: Pupils equal round and reactive to light, extra-ocular motions intact. Lids and lashes normal. Conjunctiva and sclera are non-icteric and not injected. Cornea within normal limits. Periorbital areas with no swelling, redness, or edema. ENT: Nares patent. No nasal discharge, no septal abnormalities noted. Tympanic membranes are normal and external auditory canals are clear. Oropharynx with no redness, swelling, or masses, exudates, or evidence of obstruction, uvula midline. Mucous membranes moist. Neck: Trachea midline, no thyromegaly or masses palpated, and no cervical lymphadenopathy. Supple, full range of motion without nuchal rigidity, or vertebral point tenderness. No Meningismus. Chest/axilla: Normal chest wall appearance and motion. Nontender with no deformity. No lesions are appreciated. Cardiovascular: Regular rate and rhythm with a normal S1 and S2. No gallops, murmurs, or rubs. Normal PMI, no JVD. No pulse deficits. Respiratory: Lungs have equal breath sounds bilaterally, clear to auscultation and percussion. No rales, rhonchi or wheezes noted. No increased work of breathing, no retractions or nasal flaring. Abdomen/GI: Soft, non-tender, with normal bowel sounds. No distension or tympany. No guarding or rebound. No evidence of tenderness throughout. Back: No spinal tenderness. No costovertebral tenderness. Full range of motion. Skin: Warm, dry with normal turgor. Normal color with no rashes, no lesions, and no evidence of cellulitis. MS/ Extremity: Pulses equal, no cyanosis. Neurovascular intact. Full, normal range of motion. Neuro: Awake and alert, GCS 15, oriented to person, place, time, and situation. Cranial nerves II-XII grossly intact. Motor strength 5/5 in all extremities. Sensory grossly intact. Cerebellar exam normal. Normal gait. Vital Signs: 11:49 BP 182 / 82; Pulse 60; Resp 17; Temp 97.2; Pulse Ox 98% ; Weight 86.18 kg; Height 5 ft. ll1 8 in. (172.72 cm); Pain 0/10; 13:00 BP 185 / 92; Pulse 63; Resp 20; Pulse Ox 98% ; bp 14:00 BP 158 / 88; Pulse 85; Resp 16; Pulse Ox 95% ; bp 15:00 BP 152 / 74; Pulse 51; Resp 21; Pulse Ox 98% ; bp 16:00 BP 144 / 85; Pulse 64; Resp 18; Pulse Ox 99% ; bp 11:49 Body Mass Index 28.89 (86.18 kg, 172.72 cm) ll1 MDM: 11:57 Patient medically screened. ma2 13:56 Differential diagnosis: abnormal EKG, anxiety, chest wall pain, gastroesophageal reflux ma2 disease (GERD), pancreatitis, stable angina. Data reviewed: vital signs, nurses notes. Counseling: I had a detailed discussion with the patient and/or guardian regarding: the historical points, exam findings, and any diagnostic results supporting the discharge/admit diagnosis, the presence of at least one elevated blood pressure reading (>120/80) during this emergency department visit, the need for outpatient follow up. ED course: . 09/12 11:53 Order name: Basic Metabolic Panel bp 09/12 11:53 Order name: CBC with Diff; Complete Time: 13:42 bp 09/12 11:53 Order name: LFT's; Complete Time: 13:42 bp 09/12 11:53 Order name: Magnesium; Complete Time: 13:42 bp 09/12 11:53 Order name: NT PRO-BNP; Complete Time: 13:42 bp 09/12 11:53 Order name: PT-INR; Complete Time: 12:49 bp 09/12 11:53 Order name: Troponin (emerg Dept Use Only); Complete Time: 13:42 bp 09/12 11:53 Order name: XRAY Chest (1 view); Complete Time: 12:49 bp 09/12 11:54 Order name: Basic Metabolic Panel; Complete Time: 13:42 EDMS 09/12 12:23 Order name: Manual Differential; Complete Time: 13:42 EDMS 09/12 12:56 Order name: CT Head Brain wo Cont ma2 09/12 13:20 Order name: CT; Complete Time: 13:42 EDMS 09/12 11:53 Order name: EKG; Complete Time: 11:54 bp 09/12 11:53 Order name: Cardiac monitoring; Complete Time: 12:02 bp 09/12 11:53 Order name: EKG - Nurse/Tech; Complete Time: 11:54 bp 09/12 11:53 Order name: IV Saline Lock; Complete Time: 12:02 bp 09/12 11:53 Order name: Labs collected and sent; Complete Time: 12:02 bp 09/12 11:53 Order name: O2 Per Protocol; Complete Time: 12:02 bp 09/12 11:53 Order name: O2 Sat Monitoring; Complete Time: 12:02 bp Administered Medications: 12:08 Drug: NS 0.9% 1000 ml Route: IV; Rate: 1 bolus; Site: right forearm; bp 16:38 Follow up: IV Status: Completed infusion; IV Intake: 1000ml bp 12:45 Drug: Nitroglycerin 0.4 mg Route: Sublingual; bp 17:01 Follow up: Response: Pain is decreased bp 14:00 Drug: Potassium Chloride 20 mEq Route: IV; Rate: calculated rate; Site: right forearm; bp 16:59 Follow up: IV Status: Completed infusion; IV Intake: 100ml bp 14:10 Drug: Magnesium Sulfate 1 grams Route: IVPB; Infused Over: 1 hrs; Site: right forearm; bp 17:03 Follow up: IV Status: Completed infusion; IV Intake: 50ml bp Disposition: 09/12/20 14:00 Hospitalization ordered by Kong Lu for Observation. Preliminary diagnosis is Hypokalemia. - Bed requested for Telemetry/MedSurg (observation). - Status is Observation. iw - Condition is Stable. - Problem is new. - Symptoms are unchanged. Signatures: Dispatcher [employer] EDNE Lakshmi Salazar RN RN dw Williams, Irene, RN RN iw Peltier, Brian, RN RN bp Alzahri, Mohammad, MD MD ma2 Melany Booker RN RN ll1 Corrections: (The following items were deleted from the chart) 16:31 14:00 Hospitalization Ordered by Kong Lu DO for Observation. Preliminary dw diagnosis is Hypokalemia. Bed requested for Telemetry/MedSurg (observation). Status is Observation. Condition is Stable. Problem is new. Symptoms are unchanged. ma2 17:12 16:31 09/12/2020 14:00 Hospitalization Ordered by Kong Lu DO for Observation. iw Preliminary diagnosis is Hypokalemia. Bed requested for Telemetry/MedSurg (observation). Status is Observation. Condition is Stable. Problem is new. Symptoms are unchanged. dw
--- NOTE | 2020-09-12 14:01 | ER ---
Nurse's Notes [facility] Name: Monica Nova Age: 75 yrs Sex: Male : 1945 Arrival Date: 09/12/2020 Time: 11:47 Bed 3 Private MD: Diagnosis: Hypokalemia Presentation: 09/12 11:49 Chief complaint: Patient states: Sudden onset of hands not working right, sweating 40 ll1 min RN WOUND. No CP, states he thinks he is having another heart attack. Coronavirus screen: Client denies travel out of the [place] in the last 14 days. At this time, the client does not indicate any symptoms associated with coronavirus-19. Ebola Screen: Patient denies travel to an Ebola-affected area in the 21 days before illness onset. Initial Sepsis Screen: Does the patient meet any 2 criteria? No. Patient's initial sepsis screen is negative. Does the patient have a suspected source of infection? No. Patient's initial sepsis screen is negative. Risk Assessment: Do you want to hurt yourself or someone else? Patient reports no desire to harm self or others. Onset of symptoms was September 12, 2020. 11:49 Method Of Arrival: Wheelchair ll1 11:49 Acuity: SIENNA 2 ll1 Triage Assessment: 12:00 General: Appears distressed, uncomfortable, Behavior is cooperative, appropriate for bp age, anxious. Pain: Complains of pain in chest. EENT: No deficits noted. Neuro: No deficits noted. Cardiovascular: Reports chest pain, Rhythm is sinus rhythm. Respiratory: No deficits noted. GI: No signs and/or symptoms were reported involving the gastrointestinal system. : No signs and/or symptoms were reported regarding the genitourinary system. Derm: No deficits noted. Musculoskeletal: No deficits noted. Historical: - Allergies: 11:49 PENICILLINS; ll1 - Home Meds: 12:14 apixaban oral 5 mg oral 2 times per day [Active]; clopidogrel 75 mg oral tab 1 tab once iw daily [Active]; lisinopril 20 mg Oral tab 1 tab once daily [Active]; rosuvastatin 10 mg oral tab 1 tab once daily [Active]; - PMHx: 11:49 High Cholesterol; Hypertension; [place]; ll1 - PSHx: 11:49 cardiac stent; ll1 - Immunization history:: Client reports receiving the 2nd dose of the Covid vaccine, Flu vaccine is not up to date. - Social history:: Smoking status: Patient denies any tobacco usage or history of. - Family history:: not pertinent. Screenin:30 Abuse screen: Denies threats or abuse. Denies injuries from another. Nutritional bp screening: No deficits noted. Tuberculosis screening: No symptoms or risk factors identified. Fall Risk None identified. Assessment: 12:00 General: SEE TRIAGE NOTE. bp 14:00 Reassessment: Patient and/or family updated on plan of care and expected duration. Pain bp level reassessed. Patient is alert, oriented x 3, equal unlabored respirations, skin warm/dry/pink. Patient states symptoms have improved. 16:00 Reassessment: No changes from previously documented assessment. Patient and/or family bp updated on plan of care and expected duration. Pain level reassessed. Patient is alert, oriented x 3, equal unlabored respirations, skin warm/dry/pink. PT SEEN BY HOSPITALIST. ADMIT IN PROCESS. Vital Signs: 11:49 BP 182 / 82; Pulse 60; Resp 17; Temp 97.2; Pulse Ox 98% ; Weight 86.18 kg; Height 5 ft. ll1 8 in. (172.72 cm); Pain 0/10; 13:00 BP 185 / 92; Pulse 63; Resp 20; Pulse Ox 98% ; bp 14:00 BP 158 / 88; Pulse 85; Resp 16; Pulse Ox 95% ; bp 15:00 BP 152 / 74; Pulse 51; Resp 21; Pulse Ox 98% ; bp 16:00 BP 144 / 85; Pulse 64; Resp 18; Pulse Ox 99% ; bp 11:49 Body Mass Index 28.89 (86.18 kg, 172.72 cm) ll1 ED Course: 11:47 Patient arrived in ED. as 11:48 Arm band placed on. ll1 11:50 Triage completed. ll1 11:52 Sriram Obrien, FABY is Primary Nurse. bp 11:57 Rocael Chin MD is Attending Physician. ma2 12:00 Inserted saline lock: 20 gauge in right forearm, using aseptic technique. Blood bp collected. 12:19 XRAY Chest (1 view) In Process Unspecified. EDMS 13:41 Patient has correct armband on for positive identification. Placed in gown. Bed in low bp position. Call light in reach. Side rails up X2. Adult w/ patient. 13:41 No provider procedures requiring assistance completed. bp 14:00 Kong Lu DO is Hospitalizing Provider. ma2 16:58 Patient admitted, IV remains in place. bp Administered Medications: 12:08 Drug: NS 0.9% 1000 ml Route: IV; Rate: 1 bolus; Site: right forearm; bp 16:38 Follow up: IV Status: Completed infusion; IV Intake: 1000ml bp 12:45 Drug: Nitroglycerin 0.4 mg Route: Sublingual; bp 17:01 Follow up: Response: Pain is decreased bp 14:00 Drug: Potassium Chloride 20 mEq Route: IV; Rate: calculated rate; Site: right forearm; bp 16:59 Follow up: IV Status: Completed infusion; IV Intake: 100ml bp 14:10 Drug: Magnesium Sulfate 1 grams Route: IVPB; Infused Over: 1 hrs; Site: right forearm; bp 17:03 Follow up: IV Status: Completed infusion; IV Intake: 50ml bp Intake: 16:38 IV: 1000ml; Total: 1000ml. bp 16:59 IV: 100ml; Total: 1100ml. bp 17:03 IV: 50ml; Total: 1150ml. bp Outcome: 14:00 Decision to Hospitalize by Provider. ma2 16:56 Admitted to Tele accompanied by tech, family with patient, via stretcher, room 225, bp with chart, Report called to RADHA HOBBS 16:56 Condition: stable 16:56 Instructed on the need for admit. 17:12 Patient left the ED. iw Signatures: Dispatcher [employer] Lalita Stephen Irene, RN Sriram Landaverde RN RN bp Rocael Chin MD MD ma2 Melany Booker RN RN ll1
[2020-09-12] MEDS ORDERED: KCL 20 MEQ/100 mL IVPB 20 MEQ/100 ML BAG IV ONE (14:21)
[2020-09-12] MEDS ORDERED: NA CHLORIDE 0.9% 250 ML ONE (14:21)
[2020-09-12] MEDS ORDERED: MAGNESIUM SULFATE 1 gm IVPB 1 GM/100 ML BAG IV ONE (15:04)
--- NOTE | 2020-09-12 15:51 | P.HP ---
Certification for Inpatient Patient admitted to: Observation With expected LOS: <2 Midnights Patient will require the following post-hospital care: None Practitioner: I am a practitioner with admitting privileges, knowledge of patient current condition, hospital course, and medical plan of care. Services: Services provided to patient in accordance with Admission requirements found in Title 42 Section 412.3 of the Code of Federal Regulations Patient History Date of Service: 09/12/20 Primary Care Provider: Dr. Holt Reason for admission: Heat exhaustion History of Present Illness: 75 yo male with history of CAD, atrial fibrillation on chronic anticoagulation therapy, hypertension, hyperlipidemia and alcohol abuse. Patient presented to the emergency room after episode of heat exhaustion. Patient reports waking up this morning. He went for a walk for about 15 minutes around 9 AM. Afterwards he went to work in his garden for about an hour. He reports increased sweating at that time. He felt heat exhausted. He reported some jerking to his hands and chest. He denied any chest pain, shortness of breath or loss of consciousness. He came to the ER for further evaluation. In the ER patient was evaluated. EKG showed no significant EKG changes. Magnesium level was low at 1.6. Potassium level 2.9. Sodium 144, BUN of 6, creatinine 0.73 with a GFR greater than 90. Glucose 78. Chest x-ray unremarkable. CT head unremarkable. Patient was given replacement in the emergency room. Due to his cardiac history the patient was admitted for further evaluation and treatment. Patient reports having been sent up to [place] in May of this past year. He apparently had a blood clot which was removed. He also had angioplasty at that time. No stent was placed. Patient admits drinking about 1 L of whiskey per week. Allergies Penicillins Allergy (Verified 09/02/18 15:22) PASSED OUT Home medications list reviewed: Yes Home Medications: Amlodipine Besylate/Benazepril [Amlodipine-Benazepril 10-20 mg] 1 each PO DAILY 01/07/17 Metoprolol Succinate [Toprol Xl] 200 mg PO [id number] 01/07/17 Multivitamin [Multiple Vitamins] 1 each PO DAILY 01/07/17 Rosuvastatin [Crestor] 10 mg PO BEDTIME 01/07/17 Codeine/APAP [Tylenol W/Codeine #3 tab] 1 tab PO Q4HP PRN #30 tab 09/03/18 Sulfamethoxazole/Trimethoprim [Bactrim Ds Tablet] 1 each PO BID #14 tablet 09/03/18 - Past Medical/Surgical History Diabetic: No -: HTN -: Hyperlipidemia -: Atrial fibrillation on chronic anticoagulation therapy -: CAD with prior stent -: Cardiac cath with stent Psychosocial/ Personal History: Patient lives at home. He is . - Family History Family History: Reviewed- Non-Contributory - Social History Smoking Status: Never smoker Alcohol use: Yes CD- Drugs: No Caffeine use: No Place of Residence: Home Review of Systems General: Weakness, Malaise, As per HPI Eyes: Unremarkable ENT: Unremarkable Respiratory: As per HPI Cardiovascular: As per HPI Gastrointestinal: Unremarkable Genitourinary: Unremarkable Musculoskeletal: Unremarkable Integumentary: Unremarkable Neurological: Unremarkable Lymphatics: Unremarkable Physical Examination - Physical Exam General: Alert, In no apparent distress, Oriented x3, Cooperative HEENT: Atraumatic, Normocephalic, PERRLA, Mucous membr. moist/pink Neck: Supple Respiratory: Clear to auscultation bilaterally, Normal air movement Gastrointestinal: Normal bowel sounds, No tenderness, No masses, No rebound, No guarding Musculoskeletal: No erythema, No tenderness, No warmth Integumentary: No tenderness/swelling, No erythema, No warmth Neurological: Normal speech, Normal strength at 5/5 x4 extr, Normal tone, Normal affect - Studies Laboratory Data (last 24 hrs) 09/12/20 12:00: PT 12.6 H, INR 1.09 09/12/20 12:00: WBC 4.40, Hgb 15.2, Hct 45.1, Plt Count 125 L 09/12/20 12:00: Sodium 144, Potassium 2.9 L*, BUN 6 L, Creatinine 0.73, Glucose 78, Magnesium 1.6 L, Total Bilirubin 0.8, AST 77 H, ALT 48, Alkaline Phosphatase 85 Assessment and Plan - Plan Impression: Fatigue, cramping secondary to heat exhaustion Hypokalemia Hypomagnesia Hypertension Hyperlipidemia Atrial fibrillation on chronic anticoagulation therapy CAD with prior stent Alcohol abuse Plan: Fatigue, cramping secondary to heat exhaustion: Patient will be admitted for further evaluation and treatment. Will monitor telemetry and cardiac enzymes. Restart home medications including Eliquis, Plavix, Crestor and lisinopril. DVT prophylaxisSCD. Will monitor closely. Will provide thiamine and folic acid. Will replace electrolytes including potassium and magnesium. Anticipate improvement over the next 24 hours with likely discharge. Hypokalemia: Replacement protocol in place. Hypomagnesia: Replacement protocol in place. Hypertension: Continue lisinopril 20 mg daily Hyperlipidemia: Continue Crestor 10 mg daily Atrial fibrillation on chronic anticoagulation therapy: Continue Eliquis 5 mg 1 pill twice daily CAD with prior stent: Continue Plavix 25 mg daily Alcohol abuse: Lifestyle modification education provided. Cessation education provided. Will start folic acid and thiamine. CODE STATUS: Full code DVT prophylaxis: SCD Advance care minutes: Patient desires to go home at discharge. Discharge Plan: Home Plan to discharge in: 24 Hours - Advance Directives Does patient have a Living Will: No Does patient have a Durable POA for Healthcare: No - Code Status/Comfort Care Code Status Assessed: Yes (Patient is full code) Time Spent Managing Pts Care (In Minutes): 55
[2020-09-12] MEDS ORDERED: ONDANSETRON 4 MG/2 ML VIAL IV PRN (17:13)
[2020-09-12] MEDS ORDERED: ACETAMINOPHEN 500 MG TAB PO PRN (17:13)
[2020-09-12 17:51] VITALS: BMI 28.8
[2020-09-12] MEDS: NA CHLORIDE 0.9% 1,000 ML IV SCH (18:03)
[2020-09-12 18:51] LABS: Urine Appearance CLEAR (Clear); Urine Bilirubin NEGATIVE (Negative); Urine Blood NEGATIVE (Negative); Urine Color YELLOW (Yellow); Urine Glucose NEGATIVE (Negative); Urine Protein NEGATIVE (Negative); Urine Urobilinogen 0.2 mg/dL (0.2-1.0)
[2020-09-12 19:24] LABS: Urine Microscopic Reflex NO UMIC
[2020-09-12] MEDS ORDERED: KCL 20 MEQ/100 mL IVPB 20 MEQ/100 ML BAG IV SCH ×2 (20:00→22:00)
[2020-09-12] MEDS: APIXABAN 5 MG TABLET PO SCH (20:33)
[2020-09-12] MEDS ORDERED: ROSUVASTATIN 10 MG TAB PO SCH (21:00)
[2020-09-12 21:34] LABS: CKMB Creatine Kinase MB 3.4 ng/mL (1.0-3.6); Troponin I 0.03 ng/mL (0.0-0.045)
[2020-09-13 04:56] VITALS: O2SAT 96
[2020-09-13 05:03] LABS: BUN Blood Urea Nitrogen 7 mg/dL (7-18); Bicarbonate 31 mmol/L (21-32); CKMB Creatine Kinase MB 2.9 ng/mL (1.0-3.6); Creatine Phosphokinase 139 U/L (39-308); Glucose Level 72 mg/dL (74-106); HDL Cholesterol 89 mg/dL (40-60); LDL Cholesterol, Calculated 40 (<130); Magnesium 1.6 mg/dL (1.8-2.4); Potassium 4.4 mmol/L (3.5-5.1); Sodium Level 143 mmol/L (136-145); Troponin I 0.04 ng/mL (0.0-0.045)
[2020-09-13] MEDS: NA CHLORIDE 0.9% 1,000 ML IV SCH (05:38)
--- NOTE | 2020-09-13 05:52 | P.DS ---
Admission Date: 09/12/20 Discharge Date: 09/13/20 Primary Care Provider: Dr. Holt Disposition: ROUTINE DISCHARGE Discharge Condition: GOOD Reason for Admission: Heat exhaustion Consultations: Cardiology-Dr. Soliz Procedures: COVID: Up to date with vaccine CT Head: COMPARISON: No comparisons TECHNIQUE: All CT scans are performed using dose optimization technique as appropriate and may include automated exposure control or mA/KV adjustment according to patient size. FINDINGS: No intracranial hemorrhage, hydrocephalus or extra-axial fluid collection.No areas of brain edema or evidence of midline shift. The paranasal sinuses and mastoids are clear. The calvarium is intact. IMPRESSION: No acute intracranial abnormality. CXR: COMPARISON: Chest Single View dated 06/22/2020; Chest Pa And Lat (2 Views) dated 09/02/2018; Chest Pa And Lat (2 Views) dated 01/07/2017; CHEST PA AND LAT 2 VIEW dated 02/17/2008 FINDINGS: Portable technique limits examination quality. The lungs are grossly clear. The heart is normal in size. No displaced fractures. IMPRESSION: No acute intrathoracic process suspected. Medical problem list: Fatigue, cramping secondary to heat exhaustion Hypokalemia Hypomagnesia Hypertension Hyperlipidemia Atrial fibrillation on chronic anticoagulation therapy CAD with prior stent Alcohol abuse Brief History of Present Illness: 75 yo male with history of CAD, atrial fibrillation on chronic anticoagulation therapy, hypertension, hyperlipidemia and alcohol abuse. Patient presented to the emergency room after episode of heat exhaustion. Patient reports waking up this morning. He went for a walk for about 15 minutes around 9 AM. Afterwards he went to work in his garden for about an hour. He reports increased sweating at that time. He felt heat exhausted. He reported some jerking to his hands and chest. He denied any chest pain, shortness of breath or loss of consciousness. He came to the ER for further evaluation. In the ER patient was evaluated. EKG showed no significant EKG changes. Magnesium level was low at 1.6. Potassium level 2.9. Sodium 144, BUN of 6, creatinine 0.73 with a GFR greater than 90. Glucose 78. Chest x-ray unremarkable. CT head unremarkable. Patient was given replacement in the emergency room. Due to his cardiac history the patient was admitted for further evaluation and treatment. Patient reports having been sent up to [place] in May of this past year. He apparently had a blood clot which was removed. He also had angioplasty at that time. No stent was placed. Patient admits drinking about 1 L of whiskey per week. Hospital Course: Patient presented with fatigue, cramping likely from heat exhaustion. Patient also found to have hypokalemia and hypomagnesia. Patient had been outside. est x-ray unremarkable. CT head unremarkable. Patient was observed. Patient received IV fluids with improvement. Electrolyte protocol in place. Electrolytes improved. Patient was also seen by cardiology due to his multiple risk factors including hypertension, hyperlipidemia, CAD with prior stent and atrial fibrillation on chronic anticoagulation therapy. No intervention was required. At discharge potassium back to baseline. Patient will continue with magnesium oxide 400 mg daily. Recommend to recheck labBMP and magnesium level in 1 week to monitor his progress. Recommend follow-up with cardiology as an outpatient to further address his chronic medical conditions. Education on heat exhaustion provided. Recommend to increase fluid intake if outside. Recommend to take frequent breaks. Patient with hypertension. This is remained stable. At discharge patient will continue with lisinopril 20 mg daily and metoprolol 25 mg 1 pill twice daily. Recommend to maintain blood pressure less than 130/80. Further adjustment in his medication can be done by his PCP or cardiology. Patient with hyperlipidemia. LDL well controlled. At discharge patient will continue with Crestor 5 mg daily. Patient with history of atrial fibrillation on chronic anticoagulation therapy and CAD with prior stent. At discharge patient will continue with Eliquis 5 mg 1 pill twice daily and Plavix 75 mg daily. Patient was seen by cardiology. No intervention required. Recommend to follow-up with cardiology in 2 to 4 weeks to follow-up his hospitalization and continue his care. Patient with alcohol abuse. Alcohol cessation education provided. Will recommend to continue thiamine 100 mg at discharge. Vital Signs/Physical Exam: Temp Pulse Resp BP Pulse Ox 99.2 F 56 16 175/77 H 96 09/13/20 04:00 09/13/20 04:00 09/13/20 04:00 09/13/20 04:00 09/13/20 04:00 General: Alert, In no apparent distress, Oriented x3, Cooperative HEENT: Atraumatic Neck: Supple Respiratory: Clear to auscultation bilaterally, Normal air movement Cardiovascular: Normal pulses, Regular rate/rhythm Gastrointestinal: Normal bowel sounds, No tenderness, No masses, No rebound, No guarding Musculoskeletal: No erythema, No tenderness, No warmth Integumentary: No tenderness/swelling Neurological: Normal speech, Normal strength at 5/5 x4 extr, Normal tone, Normal affect Laboratory Data at Discharge: WBC 4.40 K/uL (4.3-10.9) 09/12/20 12:00 Hgb 15.2 g/dL (13.6-17.9) 09/12/20 12:00 Hct 45.1 % (39.6-49.0) 09/12/20 12:00 Plt Count 125 K/uL (152-406) L 09/12/20 12:00 PT 12.6 SECONDS (9.5-12.5) H 09/12/20 12:00 INR 1.09 09/12/20 12:00 Sodium 143 mmol/L (136-145) 09/13/20 04:11 Potassium 4.4 mmol/L (3.5-5.1) D 09/13/20 04:11 BUN 7 mg/dL (7-18) 09/13/20 04:11 Creatinine 0.58 mg/dL (0.55-1.3) 09/13/20 04:11 Glucose 72 mg/dL (74-106) L 09/13/20 04:11 Magnesium 1.6 mg/dL (1.8-2.4) L 09/13/20 04:11 Total Bilirubin 0.8 mg/dL (0.2-1.0) 09/12/20 12:00 AST 77 U/L (15-37) H 09/12/20 12:00 ALT 48 U/L (12-78) 09/12/20 12:00 Alkaline Phosphatase 85 U/L (45-117) 09/12/20 12:00 Troponin I 0.04 ng/mL (0.0-0.045) 09/13/20 04:11 Triglycerides 48 mg/dL (<150) 09/13/20 04:11 Cholesterol 139 mg/dL (<200) 09/13/20 04:11 HDL Cholesterol 89 mg/dL (40-60) H 09/13/20 04:11 Cholesterol/HDL Ratio 1.56 09/13/20 04:11 Home Medications: Rosuvastatin [Crestor*] 0.5 mg PO DAILY 01/07/17 Apixaban [Eliquis] 1 tab PO BID 09/12/20 Clopidogrel Bisulfate [Plavix] 1 tab PO DAILY 09/12/20 Lisinopril [Zestril] 1 tab PO DAILY 09/12/20 Metoprolol Tartrate [Lopressor*] 1 tab PO BID 09/12/20 Magnesium Oxide 400 mg PO DAILY #30 tablet 09/13/20 Thiamine HCl [Vitamin B-1*] 100 mg PO DAILY #90 tablet 09/13/20 New Medications: Magnesium Oxide 400 mg PO DAILY #30 tablet Thiamine HCl [Vitamin B-1*] 100 mg PO DAILY #90 tablet Physician Discharge Instructions: Patient presented with fatigue, cramping likely from heat exhaustion. Patient also found to have hypokalemia and hypomagnesia. Patient had been outside. Chest x-ray unremarkable. CT head unremarkable. Patient was observed. Patient received IV fluids with improvement. Electrolyte protocol in place. Electrolytes improved. Patient was also seen by cardiology due to his multiple risk factors including hypertension, hyperlipidemia, CAD with prior stent and atrial fibrillation on chronic anticoagulation therapy. No intervention was required. At discharge potassium back to baseline. Patient will continue with magnesium oxide 400 mg daily. Recommend to recheck labBMP and magnesium level in 1 week to monitor his progress. Recommend follow-up with cardiology as an outpatient to further address his chronic medical conditions. Education on heat exhaustion provided. Recommend to increase fluid intake if outside. Recommend to take frequent breaks. Patient with hypertension. This is remained stable. At discharge patient will continue with lisinopril 20 mg daily and metoprolol 25 mg 1 pill twice daily. Recommend to maintain blood pressure less than 130/80. Further adjustment in his medication can be done by his PCP or cardiology. Patient with hyperlipidemia. LDL well controlled. At discharge patient will continue with Crestor 5 mg daily. Patient with history of atrial fibrillation on chronic anticoagulation therapy and CAD with prior stent. At discharge patient will continue with Eliquis 5 mg 1 pill twice daily and Plavix 75 mg daily. Patient was seen by cardiology. No intervention required. Recommend to follow-up with cardiology in 2 to 4 weeks to follow-up his hospitalization and continue his care. Patient with alcohol abuse. Alcohol cessation education provided. Will recommend to continue thiamine 100 mg at discharge. Diet: AHA Activity: Ad cristóbal Followup: NONE,NONE [Primary Care Provider] - Time spent managing pt's care (in minutes): 55
--- NOTE | 2020-09-13 07:52 | EKG ---
Test Date: 2020-09-12 Test Time: 11:56:12 Range Technician: HAYLIE MEASUREMENT RESULTS: Intervals: Rate: 54 MS: 228 QRSD: 100 QT: 474 QTc: 449 [place]: P: 92 MS: 228 QRS: -45 T: 125 INTERPRETIVE STATEMENTS: Sinus bradycardia with 1st degree AV block Left axis deviation T wave abnormality, consider lateral ischemia Abnormal ECG Compared to ECG 06/22/2020 09:21:30 First degree AV block now present T-wave abnormality now present Possible ischemia now present Atrial fibrillation no longer present ST (T wave) deviation no longer present Electronically Signed On 09-13-20 07:49:14 CDT by Nilesh Soliz
[2020-09-13] MEDS ORDERED: MAGNESIUM SULFATE 1 gm IVPB 1 GM/100 ML BAG IV ONE (08:00)
[2020-09-13 08:04] VITALS: BP 177/81; TEMP 98.1
[2020-09-13] MEDS: APIXABAN 5 MG TABLET PO SCH (08:46)
[2020-09-13] MEDS ORDERED: FOLIC ACID 1 MG TABLET PO SCH (09:00)
[2020-09-13] MEDS ORDERED: THIAMINE HCL 100 MG TABLET PO SCH (09:00)
[2020-09-13] MEDS ORDERED: METOPROLOL TAR 25 MG TAB PO SCH (09:00)
[2020-09-13] MEDS ORDERED: CLOPIDOGREL 75 MG TABLET PO SCH (09:00)
[2020-09-13] MEDS ORDERED: lisinopriL 20 MG TAB PO SCH (09:00)
== END 2020-09-13 10:09 | disposition home or self-care (01) ==
LOC: ER 11:43 → ERHOLD 15:21 → 2ND 16:57
PROVIDERS: ADMIT Family Medicine; ATTEND Family Medicine
DX: T67.5XXA Heat exhaustion, unspecified, initial encounter (principal); E87.6 Hypokalemia; E83.42 Hypomagnesemia; I10 Essential (primary) hypertension; E78.5 Hyperlipidemia, unspecified; I48.91 Unspecified atrial fibrillation; Z79.01 Long term (current) use of anticoagulants; I25.10 Atherosclerotic heart disease of native coronary artery without angina pectoris; Z95.5 Presence of coronary angioplasty implant and graft; F10.10 Alcohol abuse, uncomplicated
CPT/HCPCS: 36415; 70450; 71045; 80048; 80061; 80076; 81003; 82550; 82553; 83735; 83880; 84484; 85025; 85610; 93005; 96361; 96365; 96366; 99285; G0378; J3475; J3480; J7030; J7050

== ENCOUNTER 2023-04-12 01:23 | Inpatient (IN) | payer OTHER ==
[2023-04-12 02:00] LABS: Absolute Lymphocytes (CBC) 2.3 K/uL (0.7-4.9); Hematocrit 46.7 % (39.6-49.0); Lymphocytes % 43.5 % (15.3-44.8); MCV 93.7 fL (80-100); MPV 7.8 fL (7.6-11.3); Platelets 121 thou/uL (152-406); RBC Red Blood Cell Count 4.98 M/uL (4.33-5.43)
[2023-04-12 02:01] LABS: Protime INR 1.15
[2023-04-12] MEDS ORDERED: NITROGLYCERIN 0.4 MG/TAB SL ONE (02:11)
[2023-04-12 02:14] LABS: Albumin 3.7 g/dL (3.4-5.0); Bilirubin Direct 0.4 mg/dL (0-0.2); Bilirubin Indirect, Calculated 0.7 mg/dL (0.2-0.8); Bilirubin Total 1.1 mg/dL (0.2-1.0); Magnesium 1.8 mg/dL (1.6-2.4); Protein, Total 7.3 g/dL (6.4-8.2)
--- NOTE | 2023-04-12 02:25 | ER ---
Nurse's Notes [facility] Name: Monica Nova Age: 78 yrs Sex: Male : 1945 Arrival Date: 04/12/2023 Time: :23 Bed 18 Private MD: Diagnosis: Chest pain, unspecified Presentation: 04/12 01:30 Chief complaint: Patient states: left side chest pain that radiates down left arm,onset pf1 0200 yesterday. Patient stated the pain feels like heartburn and woke him up from his sleep. 01:30 Coronavirus screen: Vaccine status: Patient reports receiving the 2nd dose of the covid pf1 vaccine. Client denies travel out of the [place] in the last 14 days. At this time, the client does not indicate any symptoms associated with coronavirus-19. Ebola Screen: Patient negative for fever greater than or equal to 101.5 degrees Fahrenheit, and additional compatible Ebola Virus Disease symptoms. Initial Sepsis Screen: Does the patient meet any 2 criteria? No. Patient's initial sepsis screen is negative. Does the patient have a suspected source of infection? No. Patient's initial sepsis screen is negative. Risk Assessment: Do you want to hurt yourself or someone else? Patient reports no desire to harm self or others. 01:30 Method Of Arrival: Ambulatory pf1 01:30 Acuity: SIENNA 2 pf1 Historical: - Allergies: 01:44 PENICILLINS; pf1 - PMHx: 01:44 High Cholesterol; Hypertension; [place]; pf1 - PSHx: 01:45 blood clot removed from heart; skin cancer removal; pf1 - Immunization history:: Adult Immunizations up to date, Client reports receiving the 2nd dose of the Covid vaccine, Last tetanus immunization: > 10 years ago Flu vaccine is not up to date. - Social history:: Smoking status: Patient denies any tobacco usage or history of. Patient uses alcohol, occasionally. Patient/guardian denies using street drugs. Screenin:30 [facility] ED Fall Risk Assessment (Adult) History of falling in the last 3 months, pf1 including since admission No falls in past 3 months (0 pts) Confusion or Disorientation No (0 pts) Intoxicated or Sedated No (0 pts) Impaired Gait Yes (1 pt) Mobility Assist Device Used No (0 pt) Altered Elimination No (0 pt) Score/Fall Risk Level 0 - 2 = Low Risk Oriented to surroundings, Maintained a safe environment, Educated pt \T\ family on fall prevention, incl call for assistance when getting out of bed, Assessed \T\ reinforced patient's understanding of fall precautions, Provided non-skid footwear, Hourly rounding (assess needs \T\ fall precautionary measures) done, Used ambulatory aids as needed (educated on \T\ assisted with), Used gait belt as appropriate. Abuse screen: Denies threats or abuse. Nutritional screening: No deficits noted. Tuberculosis screening: No symptoms or risk factors identified. Assessment: 01:30 General: Appears in no apparent distress. comfortable, well groomed, well developed, pf1 Behavior is calm, cooperative, appropriate for age, quiet. 01:30 Pain: Complains of pain in chest and left arm Pain radiates to left arm Pain currently pf1 is 3 out of 10 on a pain scale. Quality of pain is described as burning, aching, dull, Pain began 1 day ago. Neuro: No deficits noted. Level of Consciousness is awake, alert, obeys commands, Oriented to person, place, time, situation. Cardiovascular: Reports chest pain, since yesterday Capillary refill < 3 seconds Patient's skin is warm and dry. Respiratory: No deficits noted. Airway is patent Respiratory effort is even, unlabored, Respiratory pattern is regular, symmetrical. GI: No deficits noted. No signs and/or symptoms were reported involving the gastrointestinal system. : No deficits noted. No signs and/or symptoms were reported regarding the genitourinary system. 02:30 Reassessment: Patient appears in no apparent distress at this time. Patient and/or pf1 family updated on plan of care and expected duration. Pain level reassessed. Patient is alert, oriented x 3, equal unlabored respirations, skin warm/dry/pink. Patient states feeling better. Patient states symptoms have improved. 15:49 Reassessment: attempted to call report to 2nd floor. nurse Yee just got a direct 6 admit and will call me back per charge nurse. 16:12 Reassessment: attempted to call report to 2nd floor. nurse Yee not ready for report.[email or web address] Vital Signs: 01:30 BP 189 / 104; Pulse 68; Resp 16; Temp 97.8; Pulse Ox 98% on R/A; Weight 86.18 kg; pf1 Height 5 ft. 9 in. ; Pain 3/10; 02:15 BP 178 / 97; Pulse 67; Resp 17; Pulse Ox 99% on R/A; lg3 03:00 BP 165 / 85; Pulse 74; Resp 18; Pulse Ox 97% on R/A; Pain 1/10; pf1 04:00 BP 161 / 89; Pulse 77; Resp 20; Pulse Ox 100% on R/A; pf1 01:30 Body Mass Index 28.06 (86.18 kg, 175.26 cm) pf1 01:30 Pain Scale: Adult pf1 03:00 Pain Scale: Adult pf1 ED Course: 01:26 Patient arrived in ED. [email or web address] 01:30 Stella Ellsworth MD is Attending Physician. sp3 01:30 Arm band placed on right wrist. pf1 01:44 Triage completed. pf1 01:46 EKG done, by ED staff, reviewed by Stella Ellsworth MD. Inserted saline lock: 20 gauge in right forearm, using aseptic technique. Blood collected. 01:47 Patient has correct armband on for positive identification. Bed in low position. Call light in reach. Side rails up X 1. Client placed on continuous cardiac and pulse oximetry monitoring. NIBP monitoring applied. 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 01:48 Basic Metabolic Panel Sent. wm 01:48 CBC with Diff Sent. wm 01:48 LFT's Sent. wm 01:48 Magnesium Sent. wm 01:48 NT PRO-BNP Sent. wm 01:48 PT-INR Sent. wm 01:48 Troponin HS Sent. wm 02:22 XRAY Chest (1 view) In Process Unspecified. EDMS 02:24 José Brand MD is Hospitalizing Provider. sp3 02:58 No provider procedures requiring assistance completed. pf1 02:58 Patient admitted, IV remains in place. pf1 02:58 Provided Education on: need for admit. pf1 03:43 Troponin High Sensitivity Sent. pf1 04:22 Mike Grissom, RN is Primary Nurse. tm6 07:16 Troponin High Sensitivity Sent. aw1 07:16 Troponin High Sensitivity Sent. aw1 Administered Medications: 02:16 Drug: Nitroglycerin Sublingual 0.4 mg Sublingual once; every five minute if needed x3 lg3 Route: Sublingual; 03:15 Follow up: Response: No adverse reaction; Marked relief of symptoms; Pain is decreased; pf1 Blood pressure is lowered 04:20 Drug: Nitroglycerin Sublingual 0.4 mg Sublingual once; every five minute if needed x3 pf1 Route: Sublingual; 04:46 Follow up: Response: No adverse reaction; Marked relief of symptoms; Blood pressure is pf1 lowered Medication: 01:30 VIS not applicable for this client. pf1 Outcome: 02:24 Decision to Hospitalize by Provider. sp3 02:58 Admitted to ER Hold. Please see [facility] for further documentation. pf1 02:58 Condition: stable pf1 02:58 Instructed on the need for admit, Demonstrated understanding of instructions, 17:01 Patient left the ED. [email or web address] Signatures: Dispatcher [employer] EDMS Dona Osuna, RN RN lg3 Shannon Benton Setul, MD MD sp3 Eugenie Loja Kaitlyn, RN RN kc6 Hemalatha Finney RN RN pf1 Esther Wills aw1 Mike Grissom RN RN tm6 Corrections: (The following items were deleted from the chart) 04:45 04:23 No provider procedures requiring assistance completed. pf1 pf1
--- NOTE | 2023-04-12 02:25 | EDPHYS ---
Physician Documentation [facility] Name: Monica Nova Age: 78 yrs Sex: Male : 1945 Arrival Date: 04/12/2023 Time: 01:23 Bed 18 Private MD: ED Physician Stella Ellsworth HPI: 04/12 02:06 This 78 yrs old Male presents to ER via Ambulatory with complaints of Chest Pain, Chest sp3 Tightness, Arm Pain. 02:06 78-year-old male with history of hypertension, prior [place], hyperlipidemia presents to the 3 ED with recurrent chest pain, hypertension since yesterday. Patient states he took some antacids which did not help and therefore since today the pain was still going on he decided to come in. Patient denies any other associated symptoms, including shortness of breath, syncope, near syncope, nausea, vomiting, neck or jaw pain, left arm pain, or any other anginal equivalents. On review of systems, he denies fever, URI symptoms, abdominal pain, known sick contacts, travel history, prolonged immobilization, or any other signs or symptoms. Patient also states he has a history of paroxysmal atrial fibrillation and he is currently on Eliquis without any missed doses.. Historical: - Allergies: 01:44 PENICILLINS; pf1 - PMHx: 01:44 High Cholesterol; Hypertension; [place]; pf1 - PSHx: 01:45 blood clot removed from heart; skin cancer removal; pf1 - Immunization history:: Adult Immunizations up to date, Client reports receiving the 2nd dose of the Covid vaccine, Last tetanus immunization: > 10 years ago Flu vaccine is not up to date. - Social history:: Smoking status: Patient denies any tobacco usage or history of. Patient uses alcohol, occasionally. Patient/guardian denies using street drugs. ROS: 02:09 Constitutional: Negative for fever, chills, and weight loss, Eyes: Negative for injury, sp3 pain, redness, and discharge, ENT: Negative for injury, pain, and discharge, Neck: Negative for injury, pain, and swelling, Respiratory: Negative for shortness of breath, cough, wheezing, and pleuritic chest pain, Abdomen/GI: Negative for abdominal pain, nausea, vomiting, diarrhea, and constipation, Back: Negative for injury and pain, MS/Extremity: Negative for injury and deformity, Skin: Negative for injury, rash, and discoloration, Neuro: Negative for headache, weakness, numbness, tingling, and seizure, Psych: Negative for depression, anxiety, suicide ideation, homicidal ideation, and hallucinations, Allergy/Immunology: Negative for hives, rash, and allergies, Endocrine: Negative for neck swelling, polydipsia, polyuria, polyphagia, and marked weight changes, Hematologic/Lymphatic: Negative for swollen nodes, abnormal bleeding, and unusual bruising, 02:09 All other systems are negative, Exam: 02:09 Constitutional: This is a well developed, well nourished patient who is awake, alert, sp3 and in no acute distress. Head/Face: Normocephalic, atraumatic. Eyes: Pupils equal round and reactive to light, extra-ocular motions intact. Lids and lashes normal. Conjunctiva and sclera are non-icteric and not injected. Cornea within normal limits. Periorbital areas with no swelling, redness, or edema. ENT: Nares patent. No nasal discharge, no septal abnormalities noted. External auditory canals are clear. Oropharynx with no redness, swelling, or masses, exudates, or evidence of obstruction, uvula midline. Mucous membranes moist. Neck: Trachea midline, no thyromegaly or masses palpated, and no cervical lymphadenopathy. Supple, full range of motion without nuchal rigidity, or vertebral point tenderness. No Meningismus. Chest/axilla: Normal chest wall appearance and motion. Nontender with no deformity. No lesions are appreciated. Cardiovascular: Regular rate and rhythm with a normal S1 and S2. No gallops, murmurs, or rubs. Normal PMI, no JVD. No pulse deficits. Respiratory: Lungs have equal breath sounds bilaterally, clear to auscultation and percussion. No rales, rhonchi or wheezes noted. No increased work of breathing, no retractions or nasal flaring. Abdomen/GI: Soft, non-tender, with normal bowel sounds. No distension or tympany. No guarding or rebound. No evidence of tenderness throughout. Back: No spinal tenderness. No costovertebral tenderness. Full range of motion. Skin: Warm, dry with normal turgor. Normal color with no rashes, no lesions, and no evidence of cellulitis. MS/ Extremity: Pulses equal, no cyanosis. Neurovascular intact. Full, normal range of motion. Neuro: Awake and alert, GCS 15, oriented to person, place, time, and situation. Cranial nerves II-XII grossly intact. Motor strength 5/5 in all extremities. Sensory grossly intact. Cerebellar exam normal. Normal gait. Psych: Awake, alert, with orientation to person, place and time. Behavior, mood, and affect are within normal limits. 02:09 ECG was reviewed by the Attending Physician. EKG demonstrates normal sinus rhythm with a first-degree AV block with a TX interval of 224, leftward axis, nonspecific diffuse ST/T changes without evidence of acute ischemia. Vital Signs: 01:30 BP 189 / 104; Pulse 68; Resp 16; Temp 97.8; Pulse Ox 98% on R/A; Weight 86.18 kg; pf1 Height 5 ft. 9 in. ; Pain 3/10; 02:15 BP 178 / 97; Pulse 67; Resp 17; Pulse Ox 99% on R/A; lg3 03:00 BP 165 / 85; Pulse 74; Resp 18; Pulse Ox 97% on R/A; Pain 1/10; pf1 04:00 BP 161 / 89; Pulse 77; Resp 20; Pulse Ox 100% on R/A; pf1 01:30 Body Mass Index 28.06 (86.18 kg, 175.26 cm) pf1 01:30 Pain Scale: Adult pf1 03:00 Pain Scale: Adult pf1 MDM: 01:30 Patient medically screened. sp3 02:10 Data reviewed: vital signs, nurses notes, lab test result(s), EKG, radiologic studies. sp3 ED course: 78-year-old male with hypertension and continued chest pain. Given his complex history, patient has a high heart score and will warrant admission. His log clerk is Dr. Kim. Will place in observation under hospitalist medicine after initial labs reviewed. Differential diagnosis includes acute coronary syndrome, GI pathology and/or MSK related pain. Patient will require admission regardless even if initial workup is negative. I discussed this with patient and he is on board with the plan.. 04/12 01:31 Order name: Basic Metabolic Panel; Complete Time: 02:15 sp3 04/12 01:31 Order name: CBC with Diff; Complete Time: 02:15 sp3 04/12 01:31 Order name: LFT's; Complete Time: 02:15 3 04/12 01:31 Order name: Magnesium; Complete Time: 02:15 3 04/12 01:31 Order name: NT PRO-BNP; Complete Time: 02:15 3 04/12 01:31 Order name: PT-INR; Complete Time: 02:15 3 04/12 01:31 Order name: Troponin HS; Complete Time: 02:15 3 04/12 02:52 Order name: Urinalysis w/ reflexes; Complete Time: 14:49 EDMS 04/12 02:52 Order name: Troponin High Sensitivity EDMS 04/12 02:52 Order name: Troponin High Sensitivity; Complete Time: 14:49 EDMS 04/12 02:52 Order name: Troponin High Sensitivity; Complete Time: 14:49 EDMS 04/12 02:52 Order name: Troponin High Sensitivity MS 04/12 15:56 Order name: D-Dimer EDMA 04/12 01:31 Order name: XRAY Chest (1 view) 3 04/12 16:53 Order name: CT; Complete Time: 16:54 EDMS 04/12 01:31 Order name: EKG; Complete Time: 01:31 3 04/12 01:31 Order name: Cardiac monitoring; Complete Time: 01:41 3 04/12 01:31 Order name: EKG - Nurse/Tech; Complete Time: 01:41 3 04/12 01:31 Order name: IV Saline Lock; Complete Time: 01:41 3 04/12 01:31 Order name: Labs collected and sent; Complete Time: 01:48 3 04/12 01:31 Order name: O2 Per Protocol; Complete Time: 01:41 3 04/12 01:31 Order name: O2 Sat Monitoring; Complete Time: 01:41 sp3 Administered Medications: 02:16 Drug: Nitroglycerin Sublingual 0.4 mg Sublingual once; every five minute if needed x3 lg3 Route: Sublingual; 03:15 Follow up: Response: No adverse reaction; Marked relief of symptoms; Pain is decreased; pf1 Blood pressure is lowered 04:20 Drug: Nitroglycerin Sublingual 0.4 mg Sublingual once; every five minute if needed x3 pf1 Route: Sublingual; 04:46 Follow up: Response: No adverse reaction; Marked relief of symptoms; Blood pressure is pf1 lowered Disposition Summary: 04/12/23 02:24 Hospitalization Ordered Notes: Hospitalization Status: Observation sp3 Provider: José Brand sp3 Condition: Stable sp3 Problem: an acute exacerbation sp3 Symptoms: have worsened sp3 Bed/Room Type: Standard sp3 Location: Telemetry/MedSurg (observation)(04/12/23 15:45) eb Room Assignment: [facility] [place](04/12/23 15:45) Diagnosis - Chest pain, unspecified sp3 Forms: - Medication Reconciliation Form sp3 - SBAR form sp3 - Leadership Thank You Letter sp3 Signatures: Dispatcher [employer] EDNolan Li MD MD rn Boy Gibson, HEALTH PROMOTION OFFICER-C HEALTH PROMOTION OFFICER-Cla1 Heaven Alaniz, RN RN Jami Reyes Lacie, RN RN lg3 Stella Ellsworth MD MD sp3 Hemalatha Finney RN RN pf1 Corrections: (The following items were deleted from the chart) 02:58 02:24 Telemetry/MedSurg (observation) sp3 cg 02:58 02:24 sp3 cg 15:45 02:58 [facility] ER HOLD cg eb 15:45 02:58 ERHOLD- cg eb
[2023-04-12] MEDS ORDERED: ONDANSETRON 4 MG/2 ML VIAL IV PRN (02:48)
--- NOTE | 2023-04-12 02:48 | P.HP ---
Certification for Inpatient Patient admitted to: Observation With expected LOS: <2 Midnights Practitioner: I am a practitioner with admitting privileges, knowledge of patient current condition, hospital course, and medical plan of care. Services: Services provided to patient in accordance with Admission requirements found in Title 42 Section 412.3 of the Code of Federal Regulations Patient History Date of Service: 04/12/23 Reason for admission: Chest pain. History of Present Illness: 78-year-old female patient was medical history significant for coronary artery disease status post stent placement, hypertension, hyperlipidemia, history of anticoagulation with Eliquis who came to the ED with complaint of left-sided chest pain. Pain is pleuritic in component both side radiating down the left arm so patient decided to come to the ED. Pain was rated 8 out of 10 in intensity but at time of evaluation does reduce to 2. Initial troponin was negative. Patient was asked to be admitted for ACS workup. He follows up with Dr. Kim child center assistant on outpatient. Allergies Penicillins Allergy (Verified 09/02/18 15:22) PASSED OUT Home Medications: Rosuvastatin [Crestor*] 0.5 mg PO DAILY 01/07/17 Apixaban [Eliquis] 1 tab PO BID 09/12/20 Clopidogrel Bisulfate [Plavix] 1 tab PO DAILY 09/12/20 Lisinopril [Zestril] 1 tab PO DAILY 09/12/20 Metoprolol Tartrate [Lopressor*] 1 tab PO BID 09/12/20 Magnesium Oxide 400 mg PO DAILY #30 tablet 09/13/20 Thiamine HCl [Vitamin B-1*] 100 mg PO DAILY #90 tablet 09/13/20 - Past Medical/Surgical History Diabetic: No -: HTN -: Hyperlipidemia -: Atrial fibrillation on chronic anticoagulation therapy -: CAD with prior stent -: Cardiac cath with stent Psychosocial/ Personal History: Patient lives at home. He is . - Family History Mother -: Heart disease Father -: Cancer - Social History Alcohol use: Yes CD- Drugs: No Caffeine use: No Review of Systems General: Unremarkable Eyes: Unremarkable ENT: Unremarkable Respiratory: Unremarkable Cardiovascular: Chest Pain Gastrointestinal: Unremarkable Genitourinary: Unremarkable Musculoskeletal: Unremarkable Integumentary: Unremarkable Neurological: Unremarkable Lymphatics: Unremarkable Physical Examination - Physical Exam General: Alert, Oriented x3 HEENT: Atraumatic Neck: Supple Respiratory: Normal air movement Cardiovascular: Regular rate/rhythm, Normal S1 S2 Gastrointestinal: Soft and benign Musculoskeletal: No swelling Neurological: Normal speech, Normal strength at 5/5 x4 extr - Studies Laboratory Data (last 24 hrs) 04/12/23 04/12/23 04/12/23 01:40 01:40 01:40 WBC 5.20 Hgb 16.5 Hct 46.7 Plt Count 121 L PT 12.6 H INR 1.15 Sodium 143 Potassium 3.0 L BUN 9 Creatinine 0.73 Glucose 95 Magnesium 1.8 Total Bilirubin 1.1 H AST 44 H ALT 32 Alkaline Phosphatase 87 Assessment and Plan - Plan Chest pain: ACS rule out in process. Will trend troponin, continue patient on telemetry and have patient on as needed Tylenol, and morphine for pain control. Continue aspirin therapy and Plavix therapy pending further review. Public Opinion Survey Taker to evaluate as needed. Hypertension: We will monitor vital signs per unit protocol and continue outpatient antihypertensive medications. Hyperlipidemia: We will continue statin therapy. History of anticoagulation use with Eliquis: We will continue Eliquis as prescribed outpatient. Prophylaxis: Eliquis for A-fib anticoagulation and also DVT prophylaxis. CODE STATUS: Full code. Disposition: We will rule out ACS and discharge patient once cleared by cardiology service. Discharge Plan: Home - Advance Directives Does patient have a Living Will: No Does patient have a Durable POA for Healthcare: No
[2023-04-12] MEDS ORDERED: MORPHINE 2 MG/ML SYR IV PRN (02:58)
[2023-04-12 04:39] VITALS: BMI 28.0
[2023-04-12 04:46] LABS: Specific Gravity 1.006 (1.005-1.030); Urine Bilirubin NEGATIVE (Negative); Urine Blood Negative (Negative); Urine Clarity Clear (Clear); Urine Color Colorless (Yellow); Urine Glucose NEGATIVE (Negative); Urine Protein NEGATIVE (Negative); Urine Urobilinogen Normal (Normal); Urine pH 6.5 (5.0-7.0)
[2023-04-12] MEDS ORDERED: POTASSIUM CL SA 10 MEQ TAB PO ONE ×5 (06:28→10:30)
[2023-04-12] MEDS ORDERED: METOPROLOL TAR 25 MG TAB PO ONE (06:29)
[2023-04-12] MEDS ORDERED: lisinopriL 20 MG TAB PO ONE (06:30)
[2023-04-12] MEDS ORDERED: lisinopriL 20 MG TAB ONE ×2 (06:35→13:25)
[2023-04-12] MEDS ORDERED: ASPIRIN 81 MG CHEWABLE TABLET ONE (07:59)
[2023-04-12] MEDS ORDERED: APIXABAN 5 MG TABLET ONE (07:59)
[2023-04-12] MEDS ORDERED: MAGNESIUM SULFATE 1 gm IVPB 1 GM/100 ML BAG IV ONE ×2 (08:15→08:30)
[2023-04-12] MEDS: ASPIRIN 81 MG CHEWABLE TABLET PO SCH (08:41)
[2023-04-12] MEDS: APIXABAN 5 MG TABLET PO SCH ×2 (08:41→20:27)
[2023-04-12] MEDS ORDERED: ENOXAPARIN 40 MG/0.4 ML SQ SCH (09:00)
--- NOTE | 2023-04-12 11:02 | P.PN ---
Subjective Date of Service: 04/13/23 Chief Complaint: Chest pain. Pt is resting comfortably in bed. He reports chest discomfort on deep inspiration. Pt is eager to go home. Troponin is negative x3. Waiting for cardiology eval. No other complaints. Review of Systems Unremarkable General: Unremarkable Eyes: Unremarkable ENT: Unremarkable Respiratory: Unremarkable Cardiovascular: Chest Pain Gastrointestinal: Unremarkable Genitourinary: Unremarkable Musculoskeletal: Unremarkable Integumentary: Unremarkable Neurological: Unremarkable Lymphatics: Unremarkable Physical Examination - Vital Signs Blood Pressure: 163/96 Pulse: 70 Respirations: 17 Pulse Ox (%): 95 - Physical Exam General: Alert, In no apparent distress, Oriented x3 HEENT: Atraumatic, Normocephalic, PERRLA Neck: Supple, 2+ carotid pulse no bruit Respiratory: Clear to auscultation bilaterally, Normal air movement Cardiovascular: No edema, Normal pulses, Regular rate/rhythm, Normal S1 S2 Capillary refill: <2 Seconds Gastrointestinal: Normal bowel sounds, Soft and benign, Non-distended Musculoskeletal: No clubbing, No swelling Integumentary: No rashes, No breakdown Neurological: Normal speech, Normal strength at 5/5 x4 extr, Normal tone Lymphatics: No axilla or inguinal lymphadenopathy - Studies Laboratory Data (last 24 hrs) 04/12/23 04/12/23 04/12/23 01:40 01:40 01:40 WBC 5.20 Hgb 16.5 Hct 46.7 Plt Count 121 L PT 12.6 H INR 1.15 Sodium 143 Potassium 3.0 L BUN 9 Creatinine 0.73 Glucose 95 Magnesium 1.8 Total Bilirubin 1.1 H AST 44 H ALT 32 Alkaline Phosphatase 87 Assessment And Plan - Plan Chest pain: Will r/o ACS. troponin is negative x 3 ( 28.1 <- 30.7 <- 30). Will continue aspirin, plavix prn morphine and nitroglycerin. Waiting for Cardiology eval. Pt report chest discomfort with deep inspiration. D-dimer is 313 (normal). CXR is concerning for pneumomediastinum. CT chest/abd is negative for pneumomediastinum. Hypertension: Will continue home meds with prn hydralazine. Hyperlipidemia: continue statin therapy. Hypokalemia: K is 3.0. Will replete and monitor. mag is 1.8 Hypomagnesemia: Mag is 1.8. Will replete and monitor. Possible A. fib: Will continue telemetry, BB and Eliquis. DVT Prophylaxis: Eliquis CODE STATUS: Full code. Disposition: Pending hospital course. Discharge Plan: Home Plan to discharge in: 24 Hours - Code Status/Comfort Care Code Status Assessed: Yes Code Status: Full Code
--- NOTE | 2023-04-12 11:36 | RAD REPORT ---
EXAM DESCRIPTION: RAD - Chest Single View - 04/12/2023 2:20 am CLINICAL HISTORY: CHEST PAIN COMPARISON: None. TECHNIQUE: XR CHEST 1 VIEW 04/12/2023 1:31 AM SAND MILL OPERATOR CORE SAND FINDINGS: There is a lucency at the inferior aspect of the left heart border. This may represent pos sible pneumomediastinum. Lungs are clear without consolidation, atelectasis, mass or edema. There is no pleural effusion. There is no pneumothorax. There are no acute osseous findings. IMPRESSION: Possible pneumomediastinum. Recommend CT Electronically signed by: Vinod Streeter MD 04/12/2023 03:12 AM SAND MILL OPERATOR CORE SAND Due to temporary technical issues with the PACS/Fluency reporting system, reports are being signed by the in house radiologist without review as a courtesy to ensure prompt reporting. The interpreting r adiologist is fully responsible for the content of the report.
[2023-04-12] MEDS: lisinopriL 20 MG TAB PO SCH (13:00)
[2023-04-12] MEDS: METOPROLOL TAR 25 MG TAB PO SCH ×2 (13:00→20:27)
[2023-04-12] MEDS ORDERED: ACETAMINOPHEN 325 MG TABLET ONE (13:24)
[2023-04-12] MEDS ORDERED: METOPROLOL TAR 50 MG TAB ONE (13:25)
[2023-04-12] MEDS: ACETAMINOPHEN 325 MG TABLET PO PRN ×2 (13:29→20:26)
[2023-04-12] MEDS ORDERED: SODIUM CHLORIDE 0.9% 10ML INJ IV PRN (15:17)
--- NOTE | 2023-04-12 16:53 | RAD REPORT ---
EXAM DESCRIPTION: CT - Chest Abdomen Pelvis W Cont - 04/12/2023 3:37 pm CLINICAL HISTORY: ? pneumomediastinum COMPARISON: Chest Single View dated 04/12/2023 TECHNIQUE: Thin axial CT images of the chest, abdomen, and pelvis, performed following intravenous a dministration of 100mL Isovue-300. Multiplanar reformats were generated and reviewed. All CT scans are performed using dose optimization technique as appropriate and may include automated exposure control or mA/KV adjustment according to patient size. FINDINGS: Tubular branching soft tissue density structures extending from the hilum along the upper segment left lower lobe, favored to represent areas of bronchial mucous impaction. Trace left pleural effusion. The lungs are otherwise clear.Fusiform aneurysmal dilation of the ascending thoracic aorta measuring up to 4.6 cm in caliber.No sizable pleural effusion or pericardial effusion.No intrathorac ic adenopathy. The liver demonstrates a hypoattenuating left liver lobe 1.1 cm lesion, difficult to characterize but suggestive of a small cyst. Spleen, pancreas, adrenal glands and kidneys are within normal limits. No bowel obstruction, free air, free fluid or abscess. Mild colonic diverticulosis. . No pathologic lymphadenopathy in the abdomen or pelvis. No worrisome osseous finding. IMPRESSION: No evidence of pneumomediastinum. Trace left pleural effusion. Fusiform aneurysmal dilation of the ascending thoracic aorta, measuring 4.6 cm in caliber. Findings suggestive of bronchial mucous impaction in the upper segment left lower lobe. Incidentally noted left liver lobe 1.1 cm hypoattenuating lesion not well characterized, but suggesti ve of small cysts. Mild colonic diverticulosis.
[2023-04-12] MEDS ORDERED: ROSUVASTATIN 10 MG TAB PO SCH (21:00)
[2023-04-12 21:16] VITALS: O2SAT 96
[2023-04-13] MEDS: ACETAMINOPHEN 325 MG TABLET PO PRN ×2 (04:39→11:41)
[2023-04-13] MEDS: HYDRALAZINE HCL 20 MG/ML VIAL IV PRN ×2 (04:40→11:40)
[2023-04-13 07:31] LABS: Absolute Lymphocytes (CBC) 1.5 K/uL (0.7-4.9); Lymphocytes % 26.3 % (15.3-44.8); MCV 94.7 fL (80-100); MPV 7.7 fL (7.6-11.3); Platelets 130 thou/uL (152-406); RBC Red Blood Cell Count 4.65 M/uL (4.33-5.43)
[2023-04-13 07:44] LABS: Potassium 3.2 mEq/L (3.5-5.1)
[2023-04-13] MEDS ORDERED: NITROGLYCERIN 0.4 MG/TAB SL ONE (08:07)
[2023-04-13] MEDS ORDERED: NITROGLYCERIN 0.4 MG/TAB SL PRN (08:07)
[2023-04-13] MEDS: METOPROLOL TAR 25 MG TAB PO SCH (08:20)
[2023-04-13] MEDS: APIXABAN 5 MG TABLET PO SCH (08:20)
[2023-04-13] MEDS: ASPIRIN 81 MG CHEWABLE TABLET PO SCH (08:20)
[2023-04-13] MEDS: lisinopriL 20 MG TAB PO SCH (08:20)
[2023-04-13] MEDS ORDERED: PANTOPRAZOLE 40 MG INJ IVP SCH (09:00)
--- NOTE | 2023-04-13 11:03 | P.PN ---
Subjective Date of Service: 04/13/23 Chief Complaint: Chest pain. Subjective: No new changes, Tolerating diet, C/O voiced (CP w/ inspiration) Patient is alert and oriented x 3 Resting in the bed NAD Complaints chest pain with inspiration Vital stable <Thang Smith - Last Filed: 04/13/23 11:03> Date of Service: 04/14/23 <Anastacio Hayesaristeo Sherwood - Last Filed: 04/14/23 09:59> Review of Systems 10-point ROS is otherwise unremarkable <Thang Smith - Last Filed: 04/13/23 11:03> Physical Examination - Vital Signs Temperature: 98.3 F Blood Pressure: 165/89 Pulse: 78 Respirations: 14 Pulse Ox (%): 95 - Physical Exam General: Alert, Oriented x3 HEENT: Atraumatic, Normocephalic Neck: Supple, 2+ carotid pulse no bruit Respiratory: Clear to auscultation bilaterally, Normal air movement, Other Cardiovascular: No edema, Normal pulses, Normal S1 S2, Other (Complains of chest pain with inspiration) Capillary refill: <2 Seconds Gastrointestinal: Normal bowel sounds, Soft and benign Musculoskeletal: No swelling, No erythema Integumentary: No rashes, No breakdown, No significant lesion Neurological: Normal speech, Normal tone, Normal affect <Thang Smith - Last Filed: 04/13/23 11:03> - Studies Laboratory Data (last 24 hrs) 04/13/23 11:31 Magnesium 1.8 <Maria L Hayeshernandoxavi Presley - Last Filed: 04/14/23 09:59> Assessment And Plan - Current Problems (Diagnosis) (1) Chest pain Status: Acute (2) HTN (hypertension) Status: Acute (3) HLD (hyperlipidemia) Status: Acute - Plan Chest pain: Will r/o ACS. troponin is negative x 3 ( 28.1 <- 30.7 <- 30). Will continue aspirin, plavix prn morphine and nitroglycerin. Waiting for Cardiology eval. Pt continues report chest discomfort with deep inspiration. D-dimer is 313 (normal). CXR is concerning for pneumomediastinum. CT chest/abd is negative for pneumomediastinum. Hypertension: Chronic, controlled Will continue home meds with prn hydralazine. Hyperlipidemia: Chronic controlled continue statin therapy. Hypokalemia: K is 3.2. Will replete and monitor. mag is 1.8 Hypomagnesemia: Mag is 1.8. Will replete and monitor. Will continue telemetry, BB and Eliquis. DVT Prophylaxis: Eliquis CODE STATUS: Full code. Discharge Plan: Home Plan to discharge in: 24 Hours - Code Status/Comfort Care Code Status Assessed: Yes (Full code) Code Status: Full Code Physician Review: Patient Assessed, Agree with Above Assessment and Plan Critical Care: No Time Spent Managing PTS Care (In Minutes): 35 (Minutes) <Thang Smith - Last Filed: 04/13/23 11:03> - Plan Pt seen and examined. I agree with the note by the COMPUTER NUMERICAL CONTROL PROGRAMMER. Pt has left chest wall tenderness. Troponin is negative. CT chest is unremarkable. Will replete electrolytes. <Mani Hayes - Last Filed: 04/14/23 09:59>
[2023-04-13 16:48] VITALS: BP 176/86; TEMP 97.1
--- NOTE | 2023-04-13 17:55 | P.DS ---
Admission Date: 04/13/23 Discharge Date: 04/13/23 Disposition: ROUTINE DISCHARGE Discharge Condition: GOOD Reason for Admission: Chest pain. Brief History of Present Illness: 78-year-old female patient was medical history significant for coronary artery disease status post stent placement, hypertension, hyperlipidemia, history of anticoagulation with Eliquis who came to the ED with complaint of left-sided chest pain. Pain is pleuritic in component both side radiating down the left arm so patient decided to come to the ED. Pain was rated 8 out of 10 in intensity but at time of evaluation does reduce to 2. Initial troponin was negative. Patient was asked to be admitted for ACS workup. He follows up with Dr. Kim assembly manager on outpatient. Hospital Course: Pt is a 78yo male with past medical history of coronary artery disease status post stent placement, hypertension, and hyperlipidemia who presented with left sided chest wall pain. We admitted pt to r/o ACS. troponin was negative x 3. We also consulted Cardiology. CXR was concerning for pneumomediastinum and recommended CT chest. D-dimer was 313. CT chest and abdomen was negative for PE or pneumomediastinum. Pt continue to have cleft chest wall tenderness, at the edge of the left rib cage. We gave prn pain med and advised him to continue prn ibuprofen at home. We laso repleted potassium and magnesium. We continued home med for other chronic medical problems. pt was advised to follow up with Dr. Kim and PCP within 1 week. Vital Signs/Physical Exam: Temp Pulse Resp BP Pulse Ox 97.1 F 97 H 18 176/86 H 97 04/13/23 16:00 04/13/23 16:00 04/13/23 16:00 04/13/23 16:00 04/13/23 16:00 Laboratory Data at Discharge: WBC 5.70 thou/uL (4.3-10.9) 04/13/23 07:17 Hgb 15.3 g/dL (13.6-17.9) 04/13/23 07:17 Hct 44.0 % (39.6-49.0) 04/13/23 07:17 Plt Count 130 thou/uL (152-406) L 04/13/23 07:17 PT 12.6 SECONDS (9.5-12.5) H 04/12/23 01:40 INR 1.15 04/12/23 01:40 Sodium 138 mEq/L (136-145) 04/13/23 07:17 Potassium 3.2 mEq/L (3.5-5.1) L 04/13/23 07:17 BUN 12 mg/dL (7-18) 04/13/23 07:17 Creatinine 0.66 mg/dL (0.70-1.30) L 04/13/23 07:17 Glucose 90 mg/dL (74-106) 04/13/23 07:17 Magnesium 1.8 mg/dL (1.6-2.4) 04/13/23 11:31 Total Bilirubin 1.1 mg/dL (0.2-1.0) H 04/12/23 01:40 AST 44 U/L (15-37) H 04/12/23 01:40 ALT 32 U/L (16-61) 04/12/23 01:40 Alkaline Phosphatase 87 U/L (45-117) 04/12/23 01:40 Home Medications: Rosuvastatin [Crestor*] 10 mg PO DAILY 01/07/17 Apixaban [Eliquis] 1 tab PO BID 09/12/20 Clopidogrel Bisulfate [Plavix] 1 tab PO DAILY 09/12/20 Lisinopril [Zestril] 1 tab PO DAILY 09/12/20 Metoprolol Tartrate [Lopressor*] 1 tab PO BID 09/12/20 Physician Discharge Instructions: Continue ad cristóbal activity. Take home meds as prescribed. Take prn ibuprofen for chest wall pain. Follow up with Dr. Kim and PCP within 1 week. Diet: AHA Activity: Ad cristóbal Followup: Zulay Miranda DO [Primary Care Provider] -
[2023-04-14] MEDS ORDERED: CLOPIDOGREL 75 MG TABLET PO SCH (09:00)
--- NOTE | 2023-04-15 16:58 | EKG ---
Test Date: 2023-04-13 Test Time: 09:17:00 Publishing Director: ANITA Sherwood MEASUREMENT RESULTS: Intervals: Rate: 81 UT: 198 QRSD: 98 QT: 394 QTc: 457 [place]anger: P: 17 UT: 198 QRS: -29 T: 106 INTERPRETIVE STATEMENTS: Normal sinus rhythm Nonspecific T wave abnormality Abnormal ECG Compared to ECG 04/12/2023 01:31:18 T-wave abnormality now present First degree AV block no longer present ST (T wave) deviation no longer present Electronically Signed On 04-15-23 16:53:11 SITE AUDITOR by William Kim
--- NOTE | 2023-04-15 17:04 | EKG ---
Test Date: 2023-04-12 Test Time: 01:31:18 [employer]: LOIS MEASUREMENT RESULTS: Intervals: Rate: 67 ID: [id number] QRSD: 108 QT: 424 QTc: 448 [place]: P: 42 ID: [id number] QRS: 2 T: 128 INTERPRETIVE STATEMENTS: Sinus rhythm with 1st degree AV block Nonspecific ST and T wave abnormality Abnormal ECG Compared to ECG 09/12/2020 11:56:12 ST (T wave) deviation now present Sinus bradycardia no longer present Left-axis deviation no longer present T-wave abnormality no longer present Possible ischemia no longer present Electronically Signed On 04-15-23 16:54:56 [employer] I [employer] by William Kim
== END 2023-04-13 18:45 | disposition home or self-care (01) | DRG 313 ==
LOC: ER 01:23 → ERHOLD 02:48 → 2ND 16:53 → OBSVTOIN 04-13 16:04
PROVIDERS: ADMIT Internal Medicine Nephrology; ATTEND Hospitalist
DX: R07.9 Chest pain, unspecified (principal); I48.0 Paroxysmal atrial fibrillation; I10 Essential (primary) hypertension; E78.00 Pure hypercholesterolemia, unspecified; E87.6 Hypokalemia; E83.42 Hypomagnesemia; I25.2 Old myocardial infarction; I25.10 Atherosclerotic heart disease of native coronary artery without angina pectoris; Z95.5 Presence of coronary angioplasty implant and graft; Z88.0 Allergy status to penicillin; Z79.02 Long term (current) use of antithrombotics/antiplatelets; Z79.01 Long term (current) use of anticoagulants; Z79.899 Other long term (current) drug therapy; Z85.828 Personal history of other malignant neoplasm of skin
CPT/HCPCS: 36415; 71045; 71260; 74177; 80048; 80076; 81003; 83735; 83880; 84484; 85025; 85379; 85610; 93005; 99285; C9113; G0378; J0360; J2270; J3475; Q9967